=== PATIENT | female | born 1935 | race African-American/Black ===

== ENCOUNTER → 2016-08-17 | Outpatient (CLI) | payer MEDICARE, OTHER ==
--- NOTE | 2016-08-17 16:00 | RADIOLOGY REPORT (SQ) ---
EXAM DESCRIPTION: CT CHEST WITH; CT ABD/PELVIS WITH IV ONLY COMPLETED DATE/TIME: 08/17/2016 3:04 pm REASON FOR STUDY: ABN WEIGHT LOSS/COUGH R63.4 ABNORMAL WEIGHT LOSS R05 COUGH COMPARISON: None. CONTRAST TYPE AND DOSE: 57mL Omnipaque 300- low osmolar. RENAL FUNCTION: Creatinine 1.5 TECHNIQUE: CT scan of the chest performed using helical scanning technique with dynamic intravenous contrast injection. Images reviewed with lung, soft tissue and bone windows. Reconstructed coronal a nd sagittal MPR images reviewed. All images stored on PACS. CT scan of the abdomen and pelvis performed with intravenous and with oral contrastusing helical scan jai technique with dynamic intravenous contrast injection. Images reviewed with lung, soft tissue a nd bone windows. Reconstructed coronal and sagittal MPR images reviewed. Delayed images for evaluat ion of the urinary system also acquired and evaluated. All images stored on PACS. All CT scanners at this facility use dose modulation, iterative reconstruction, and/or weight based d osing when appropriate to reduce radiation dose to as low as reasonably achievable (ALARA). [facility]: Dose Right [facility]: CareDose [facility]: Dose Right [facility]: Teradose 4D [facility]: [employer] RADIATION DOSE: 4.42; 9.52 mGy. LIMITATIONS: No oral contrast FINDINGS: CHEST: LUNGS AND PLEURA: No opacities, nodules, masses. No pneumothorax. No effusions. HILAR AND MEDIASTINAL STRUCTURES: No identified masses or abnormal nodes. HEART AND VASCULAR STRUCTURES: No aneurysm or dissection. No central pulmonary emboli. No pericardi al effusion. Mild coronary artery calcification. HARDWARE: None. THYROID AND OTHER SOFT TISSUES: No masses. No adenopathy. BONES: No significant finding. OTHER: No other significant finding. ABDOMEN AND PELVIS: LIVER: Normal size. No masses or dilated ducts. 5 to 6 mm simple cyst right lobe liver image 17 SPLEEN: Normal size. No focal lesions. PANCREAS: No masses. No significant calcifications. No adjacent inflammation or peripancreatic fluid collections. Pancreatic duct not dilated. GALLBLADDER: No identified stones by CT criteria. No inflammatory changes to suggest cholecystitis. ADRENAL GLANDS: No significant masses or asymmetry. RIGHT KIDNEY AND URETER: No solid masses. No significant calcification. No hydronephrosis or hydroure ter. LEFT KIDNEY AND URETER: No solid masses. No significant calcification. No hydronephrosis or hydrouret er. Left upper pole 1.6 cm, 1.3 cm and 1.1 cm cortical cysts. AORTA AND VESSELS: No aneurysm. No dissection. Renal arteries, SMA, celiac without stenosis. RETROPERITONEUM: No retroperitoneal adenopathy, hemorrhage or masses. BOWEL AND PERITONEAL CAVITY: No masses or inflammatory changes. No free fluid or peritoneal masses. Large amount of stool throughout the colon. APPENDIX: Normal. ABDOMINAL WALL: No masses. No hernias. BONES: No significant or acute findings. PELVIS: No other significant finding. Normal size uterus and ovaries. No free pelvic fluid. Delaye d images of the urinary bladder unremarkable. IMPRESSION: No CT findings to explain history of weight loss TECHNICAL DOCUMENTATION: JOB ID: [id number] Quality ID # [id number]: Final reports with documentation of one or more dose reduction techniques (e.g., Au tomated exposure control, adjustment of the mA and/or kV according to patient size, use of iterative reconstruction technique) 2010 [employer]- All Rights Reserved
== END ==
LOC: RAD 13:33
PROVIDERS: ATTEND Internal Medicine
DX: R63.4 Abnormal weight loss (principal); R05 Cough; K76.89 Other specified diseases of liver
CPT/HCPCS: 71260; 74177; 82565

== ENCOUNTER → 2016-11-08 | Outpatient (CLI) | payer MEDICARE, OTHER ==
--- NOTE | 2016-11-10 02:11 | WOMENS IMAGING REPORT ---
EXAM DESCRIPTION: 3D SCREENING MAMMO BILAT COMPLETED DATE/TIME: 11/08/2016 8:37 am REASON FOR STUDY: ROUTINE SCREENING COMPARISON: Multiple since 2012 TECHNIQUE: Standard craniocaudal and mediolateral oblique views of each breast recorded using digita l acquisition and breast tomosynthesis. LIMITATIONS: None. FINDINGS: No masses, calcifications or architectural distortion. No areas of suspicion. Read with the assistance of CAD. .[facility] - R2 [employer] Version 1.3 .[facility] - R2 Cenova Version 1.3 .[facility] - R2 Cenova Version 2.4 .[facility] [place] [facility] - R2 Cenova Version 2.4 .[facility] - R2 [employer] Version 9.2 IMPRESSION: NORMAL MAMMOGRAM. BIRADS 1. BREAST DENSITY: d. The breasts are extremely dense, which lowers the sensitivity of mammography. BIRAD: 1 NEGATIVE RECOMMENDATION: ROUTINE SCREENING Please continue bilateral screening tomosynthesis in October 2017 COMMENT: The patient has been notified of the results by letter per SA requirements. Additional no tification policies are in place for contacting patient with suspicious or incomplete findings. Quality ID #[id number]: The [employer] recommends an annual screening mammogram for women aged 40 years or over. This facility utilizes a reminder system to ensure that all patients receive reminder letters, and/or direct phone calls for appointments. This includes reminders for routine scr eening mammograms, diagnostic mammograms, or other Breast Imaging Interventions when appropriate. Th is patient will be placed in the appropriate reminder system. The [employer] (ACR) has developed recommendations for screening MRI of the breast s in certain patient populations, to be used in conjunction with mammography. Breast MRI surveillanc e may be appropriate for women with more than 20% lifetime risk of developing breast cancer as deter mined by genetic testing, significant family history of the disease, or history of mantle radiation f or Hodgkins Disease. ACR Practice Guidelines 2008. DBT Technology DBT is a type of tomographic mammography. With conventional mammography, overlapping breast tissue ma y make lesions difficult to detect, even with good compression. DBT uses an x-ray tube that rotates a round the breast, taking images at different angles. These images are then combined to create thin sl ices of the breast that the radiologist can view as a 3D reconstruction. The [employer] unit can perform full-field digital mammograms (2D imaging); or DBT (3D imaging); or both, in a combination mode that quickly performs both the mammogram and the tomosynthesis scan while the breast is still compressed. PQRS 6045F: Fluoroscopic imaging is not utilized for breast tomosynthesis. TECHNICAL DOCUMENTATION: FINDING NUMBER: (1) ASSESSMENT: (1) JOB ID: [id number] [email or web address]- All Rights Reserved
== END ==
LOC: WI 08:07
PROVIDERS: ATTEND Internal Medicine
DX: Z12.31 Encounter for screening mammogram for malignant neoplasm of breast (principal)
CPT/HCPCS: 77063; G0202; 77067

== ENCOUNTER 2017-03-03 11:13 | Emergency (ER) | payer MEDICARE, OTHER ==
[2017-03-03] MEDS ORDERED: NORMAL SALINE 1000 ML 1,000 ML IV ONE (11:28)
--- NOTE | 2017-03-03 11:32 | ER Document Report ---
ED Medical Screen (RME) - General Chief Complaint: Near Syncope Stated Complaint: WEAKNESS Time Seen by Provider: 03/03/17 11:28 Mode of Arrival: Ambulatory Information source: Patient, Relative TRAVEL OUTSIDE OF THE [place] IN LAST 30 DAYS: No - HPI Patient complains to provider of: near syncope Onset: This morning - pt. states she was on the commonde when she got weak and light-headed and felt like she may pass out. Feels better now - Related Data Allergies/Adverse Reactions: No Known Allergies Allergy (Unverified 05/03/13 14:41) Past Medical History - Past Medical History Cardiac Medical History: Reports: Hx Hypertension - Immunizations Hx Diphtheria, Pertussis, Tetanus Vaccination: Yes Physical Exam - Vital signs Vitals: Temp Pulse Resp BP Pulse Ox 97.8 F 65 20 141/63 H 100 03/03/17 11:22 03/03/17 11:22 03/03/17 11:22 03/03/17 11:22 03/03/17 11:22 Course - Vital Signs Vital signs: Temp Pulse Resp BP Pulse Ox 97.8 F 65 20 141/63 H 100 03/03/17 11:22 03/03/17 11:22 03/03/17 11:22 03/03/17 11:22 03/03/17 11:22
[2017-03-03 12:06] LABS: ABSOLUTE BASOPHILS # (AUTO) 0.1 10^3/uL (0.0-0.2); ABSOLUTE EOSINOPHILS # (AUTO) 0.1 10^3/uL (0.0-0.6); ABSOLUTE LYMPHOCYTES (AUTO) 0.8 10^3/uL (0.5-4.7); ABSOLUTE MONOCYTES (AUTO) 0.9 10^3/uL (0.1-1.4); ABSOLUTE NEUT (AUTO) 3.6 10^3/uL (1.7-8.2); BASOPHILS % (AUTO) 1.2 % (0-2); EOSINOPHILS % (AUTO) 2.6 % (0-6); HEMATOCRIT 36.9 % (36.0-47.0); HEMOGLOBIN 12.5 g/dL (12.0-15.5); HGB HCT DIFFERENCE 0.6; LYMPHOCYTES % (AUTO) 14.9 % (13-45); MEAN CORPUSCULAR HEMOGLOBIN 31.5 pg (27.0-33.4); MEAN CORPUSCULAR VOLUME 93 fl (80-97); MONOCYTES % (AUTO) 15.9 % (3-13); RED BLOOD COUNT 3.97 10^6/uL (3.72-5.28); RED CELL DISTRIBUTION WIDTH 13.4 % (11.5-14.0); SEGMENTED NEUTROPHILS % (AUTO) 65.4 % (42-78); WHITE BLOOD COUNT 5.4 10^3/uL (4.0-10.5)
--- NOTE | 2017-03-03 12:11 | ER Document Report ---
ED Dizziness/Weakness - General Chief Complaint: Near Syncope Stated Complaint: WEAKNESS Time Seen by Provider: 03/03/17 11:28 Mode of Arrival: Ambulatory Notes: 81 years old female with a history of high blood pressure got up this morning took her blood pressure medicine went down and had breakfast and came back to her room and was sitting suddenly felt dizzy and lightheaded lasting for about a minute or 2 and then she started drinking some water. A few minutes later she felt much better and the dizziness went away. Currently has no lightheadedness, denies any spinning sensation, denies any ringing sensation, denies any headache, denies any fever chills or other constitutional symptoms. Denies any focal weaknesses TRAVEL OUTSIDE OF THE [place] IN LAST 30 DAYS: No - Related Data Allergies/Adverse Reactions: No Known Allergies Allergy (Unverified 05/03/13 14:41) Home Medications: Current Home Medications Amlodipine Besylate/Benazepril [Amlodipine-Benazepril 10-40 mg] 1 tab PO DAILY 03/03/17 [History] Bisoprolol/Hydrochlorothiazide [Bisoprolol-Hctz 10-6.25 mg Tab] 1 tab PO DAILY 03/03/17 [History] Hydralazine HCl 2 tab PO QAM 03/03/17 [History] Past Medical History - General Information source: Patient, Relative - Social History Smoking Status: Former Smoker Chew tobacco use (# tins/day): No Frequency of alcohol use: None Drug Abuse: None Family History: Reviewed & Not Pertinent Patient has suicidal ideation: No Patient has homicidal ideation: No - Past Medical History Cardiac Medical History: Reports: Hx Hypertension Renal/ Medical History: Denies: Hx Peritoneal Dialysis - Immunizations Hx Diphtheria, Pertussis, Tetanus Vaccination: Yes Hx Pneumococcal Vaccination: 12/24/12 Review of Systems - Review of Systems Notes: REVIEW OF SYSTEMS: CONSTITUTIONAL : Denies fever, chills, or sweats. Denies recent illness. EENT: Denies eye, ear, throat, or mouth pain or symptoms. Denies nasal or sinus congestion or discharge. Denies throat, tongue, or mouth swelling or difficulty swallowing. CARDIOVASCULAR: Denies chest pain. Denies palpitations or racing or irregular heart beat. Denies ankle edema. RESPIRATORY: Denies cough, cold, or chest congestion. Denies shortness of breath, difficulty breathing, or wheezing. GASTROINTESTINAL: Denies abdominal pain or distention. Denies nausea, vomiting , or diarrhea. Denies blood in vomitus, stools, or per rectum. Denies black, tarry stools. Denies constipation. GENITOURINARY: Denies difficulty urinating, painful urination, burning, frequency, blood in urine, or discharge. FEMALE GENITOURINARY: Denies vaginal bleeding, heavy or abnormal periods, irregular periods. Denies vaginal discharge or odor. MUSCULOSKELETAL: Denies back or neck pain or stiffness. Denies joint pain or swelling. SKIN: Denies rash, lesions or sores. HEMATOLOGIC : Denies easy bruising or bleeding. LYMPHATIC: Denies swollen, enlarged glands. NEUROLOGICAL: Denies confusion or altered mental status. Denies passing out or loss of consciousness. Denies dizziness or lightheadedness. Denies headache. Denies weakness or paralysis or loss of use of either side. Denies problems with gait or speech. Denies sensory loss, numbness, or tingling. Denies seizures. PSYCHIATRIC: Denies anxiety or stress. Denies depression, suicidal ideation, or homicidal ideation. ALL OTHER SYSTEMS REVIEWED AND NEGATIVE. PHYSICAL EXAMINATION: GENERAL: Well-appearing, not seems to be in any acute distress very pleasant female HEAD: Atraumatic, normocephalic. EYES: Pupils equal round and reactive to light, extraocular movements intact, conjunctiva are normal. ENT: Nares patent, oropharynx clear without exudates. Moist mucous membranes. NECK: Normal range of motion, supple without lymphadenopathy LUNGS: Breath sounds clear to auscultation bilaterally and equal. No wheezes rales or rhonchi. HEART: Regular rate and rhythm without murmurs ABDOMEN: Soft, nontender, nondistended abdomen. No guarding, no rebound. No masses appreciated. Female : deferred Musculoskeletal: Normal range of motion, no pitting or edema. No cyanosis. NEUROLOGICAL: Cranial nerves grossly intact. Normal speech, normal gait. Normal sensory, motor exams PSYCH: Normal mood, normal affect. SKIN: Warm, Dry, normal turgor, no rashes or lesions noted. Dictation was performed using [employer] voice recognition software Physical Exam - Vital signs Vitals: Temp Pulse Resp BP Pulse Ox 97.8 F 65 20 141/63 H 100 03/03/17 11:22 03/03/17 11:22 03/03/17 11:22 03/03/17 11:22 03/03/17 11:22 Course - Re-evaluation Re-evalutation: 03/03/17 13:16 Patient feeling comfortable - Vital Signs Vital signs: Temp Pulse Resp BP Pulse Ox 97.8 F 65 20 141/63 H 100 03/03/17 11:22 03/03/17 11:22 03/03/17 11:22 03/03/17 11:22 03/03/17 11:22 - Laboratory Result Diagrams: 03/03/17 11:45 03/03/17 11:45 Laboratory results interpreted by me: 03/03/17 03/03/17 11:45 11:45 Monocytes % 15.9 H BUN 26 H Est GFR ( Amer) 53 L Est GFR (Non-Af Amer) 43 L Total Protein 8.7 H - Diagnostic Test Radiology results interpreted by me: 03/03/17 13:16 Chest x-ray report reviewed it appears negative - EKG Interpretation by Me EKG shows normal: Sinus rhythm - At the rate of 53 bpm normal axis no acute ST elevation ST depression T-wave inversion noted. Discharge - Discharge Clinical Impression: Positional lightheadedness Hypertension Qualifiers: Hypertension type: essential hypertension Qualified Code(s): I10 - Essential ( primary) hypertension Condition: Good Disposition: HOME, SELF-CARE Instructions: Orthostatic Hypotension ([facility])
[2017-03-03 12:16] LABS: ALANINE AMINOTRANSFERASE 24 U/L (9-52); ALBUMIN 4.6 g/dL (3.5-5.0); ALKALINE PHOSPHATASE 67 U/L (38-126); ANION GAP 10 (5-19); ASPARTATE AMINO TRANSFERASE 21 U/L (14-36); BILIRUBIN,DIRECT 0.4 mg/dL (0.0-0.4); BILIRUBIN,TOTAL 0.5 mg/dL (0.2-1.3); BLOOD UREA NITROGEN 26 mg/dL (7-20); CALCIUM 9.5 mg/dL (8.4-10.2); CARBON DIOXIDE 29 mmol/L (22-30); CHLORIDE 103 mmol/L (98-107); CREATINE KINASE 63 U/L (30-135); CREATININE RESULT 1.19 mg/dL (0.52-1.25); GLUCOSE 88 mg/dL (75-110); SODIUM 141.7 mmol/L (137-145); TOTAL PROTEIN 8.7 g/dL (6.3-8.2)
[2017-03-03 12:25] LABS: CREATINE KINASE MB 0.71 ng/mL (<4.55)
[2017-03-03 12:29] LABS: TROPONIN I < 0.012 ng/mL
--- NOTE | 2017-03-03 12:55 | RADIOLOGY REPORT (SQ) ---
EXAM DESCRIPTION: CHEST PA/LAT COMPLETED DATE/TIME: 03/03/2017 12:48 pm REASON FOR STUDY: weakness COMPARISON: None. EXAM PARAMETERS: NUMBER OF VIEWS: two views TECHNIQUE: Digital Frontal and Lateral radiographic views of the chest acquired. RADIATION DOSE: NA LIMITATIONS: none FINDINGS: LUNGS AND PLEURA: No opacities, masses or pneumothorax. No pleural effusion. MEDIASTINUM AND HILAR STRUCTURES: No masses or contour abnormalities. HEART AND VASCULAR STRUCTURES: Heart normal size. No evidence for failure. BONES: No acute findings. HARDWARE: None in the chest. OTHER: No other significant finding. IMPRESSION: NO SIGNIFICANT RADIOGRAPHIC FINDING IN THE CHEST. TECHNICAL DOCUMENTATION: JOB ID: [id number] [employer]- All Rights Reserved
[2017-03-03 13:38] VITALS: BP 138/68
--- NOTE | 2017-03-03 23:11 | EKG REPORT ---
SEVERITY:- ABNORMAL ECG - SINUS RHYTHM ATRIAL PREMATURE COMPLEX FIRST DEGREE AV BLOCK LEFT VENTRICULAR HYPERTROPHY : Confirmed by: Rick Resendez 03-Mar-2017 23:11:12
== END 2017-03-03 13:40 | disposition home or self-care (01) ==
LOC: ER 11:13
DX: R42 Dizziness and giddiness (principal); I10 Essential (primary) hypertension; R53.1 Weakness; Z79.899 Other long term (current) drug therapy; Z87.891 Personal history of nicotine dependence
CPT/HCPCS: 93005; 99285; 96360; 36415; 82553; 82550; 85025; 80053; 84484; 71020; 93010; J7030

== ENCOUNTER 2017-03-28 02:08 | Emergency (ER) | payer MEDICARE, OTHER ==
[2017-03-28] MEDS ORDERED: NORMAL SALINE 500 ML IV ONE ×2 (03:13→05:34)
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
[2017-03-28 03:58] LABS: ALANINE AMINOTRANSFERASE 28 U/L (9-52); ALBUMIN 3.8 g/dL (3.5-5.0); ALKALINE PHOSPHATASE 63 U/L (38-126); ANION GAP 11 (5-19); ASPARTATE AMINO TRANSFERASE 37 U/L (14-36); BILIRUBIN,DIRECT 0.2 mg/dL (0.0-0.4); BILIRUBIN,TOTAL 0.8 mg/dL (0.2-1.3); BLOOD UREA NITROGEN 23 mg/dL (7-20); CALCIUM 9.3 mg/dL (8.4-10.2); CARBON DIOXIDE 30 mmol/L (22-30); CHLORIDE 95 mmol/L (98-107); GLUCOSE 114 mg/dL (75-110); POTASSIUM 3.7 mmol/L (3.6-5.0); SODIUM 136.1 mmol/L (137-145); TOTAL PROTEIN 7.2 g/dL (6.3-8.2)
[2017-03-28 04:23] LABS: HEMATOCRIT 36.5 % (36.0-47.0); HEMOGLOBIN 12.5 g/dL (12.0-15.5); MEAN CORPUSCULAR HEMOGLOBIN 30.7 pg (27.0-33.4); MEAN CORPUSCULAR HGB CONC 34.2 g/dL (32.0-36.0); MEAN CORPUSCULAR VOLUME 90 fl (80-97); PLATELET COUNT 205 10^3/uL (150-450); RED BLOOD COUNT 4.07 10^6/uL (3.72-5.28); RED CELL DISTRIBUTION WIDTH 13.6 % (11.5-14.0)
--- NOTE | 2017-03-28 04:32 | RADIOLOGY REPORT (SQ) ---
EXAM DESCRIPTION: CHEST SINGLE VIEW CLINICAL HISTORY: 81 years, Female, syncope COMPARISON: 03/03/2017. FINDINGS: Adequate lung volume, clear parenchyma, normal cardiac silhouette, atherosclerosis, and mild osteoarthritis. IMPRESSION: No acute cardiopulmonary findings. 2011 [employer]- All Rights Reserved
[2017-03-28 04:36] LABS: ABSOLUTE LYMPHOCYTES# (MANUAL) 2.3 10^3/uL (0.5-4.7); ABSOLUTE MONOCYTES # (MANUAL) 0.4 10^3/uL (0.1-1.4); ABSOLUTE NEUTROPHILS# (MANUAL) 3.2 10^3/uL (1.7-8.2); ACANTHOCYTES SLIGHT; BAND NEUTROPHILS % (MANUAL) 5 % (3-5); BASOPHILS % (MANUAL) 0 % (0-2); EOSINOPHILS % (MANUAL) 0 % (0-6); LYMPHOCYTES % (MANUAL) 39 % (13-45); MONOCYTES % (MANUAL) 7 % (3-13); PLATELET COMMENT ADEQUATE; PLATELET LARGE PRESENT; POIKILOCYTOSIS SLIGHT; SEGMENTED NEUTROPHILS % (MAN) 49 % (42-78); TOTAL CELLS COUNTED 100
--- NOTE | 2017-03-28 04:41 | RADIOLOGY REPORT (SQ) ---
EXAM DESCRIPTION: CT HEAD WITHOUT CLINICAL HISTORY: 81 years Female, syncope COMPARISON: None. TECHNIQUE: No contrast. This exam was performed according to our departmental dose-optimization program, which includes automated exposure control, adjustment of the mA and/or kV according to patient size and/or use of iterative reconstruction technique. FINDINGS: No acute intracranial findings. Mild cerebral volume loss, atherosclerosis, moderate left maxillary mucosal occlusion with high attenuation components and 0.5 cm calcification, chronic nondisplaced oblique defect of the lateral left orbital wall and chronic mild deformity of the lateral and medial left maxillary wall. IMPRESSION: No acute findings. 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
[2017-03-28 06:33] LABS: AMORPHOUS SEDIMENT,URINE TRACE /HPF; APPEARANCE,URINE CLEAR; BILIRUBIN,URINE NEGATIVE (NEGATIVE); COLOR,URINE YELLOW; GLUCOSE, URINE NEGATIVE (NEGATIVE); KETONES,URINE NEGATIVE (NEGATIVE); LEUKOCYTE ESTERASE,URINE TRACE (NEGATIVE); NITRITE,URINE NEGATIVE (NEGATIVE); PROTEIN,URINE NEGATIVE (NEGATIVE); URINE SPECIFIC GRAVITY 1.009
[2017-03-28 07:00] VITALS: BP 119/68
--- NOTE | 2017-03-28 10:33 | EKG REPORT ---
SEVERITY:- ABNORMAL ECG - SINUS RHYTHM FIRST DEGREE AV BLOCK LEFT AXIS DEVIATION LEFT VENTRICULAR HYPERTROPHY : Confirmed by: Rick Resendez 28-Mar-2017 10:33:01
== END 2017-03-28 07:00 | disposition home or self-care (01) ==
LOC: ER 02:08
DX: R55 Syncope and collapse (principal); R42 Dizziness and giddiness
CPT/HCPCS: 93005; 99285; 36415; 85025; 80053; 81001; 84484; 71045; 70450; 93010; J7040

== ENCOUNTER → 2017-08-01 | Outpatient (CLI) | payer MEDICARE, OTHER ==
--- NOTE | 2017-08-01 10:43 | RADIOLOGY REPORT (SQ) ---
EXAM DESCRIPTION: U/S RETROPERITON (RENAL/AORTA) COMPLETED DATE/TIME: 08/01/2017 9:41 am REASON FOR STUDY: ABN KIDNEY FUNCTION STUDIES (R94.4) R94.4 ABNORMAL RESULTS OF KIDNEY FUNCTION ANGEL DIES COMPARISON: None. TECHNIQUE: Dynamic and static grayscale images acquired of the kidneys and bladder and recorded on P ACS. Additional selected color Doppler and spectral images recorded. LIMITATIONS: None. FINDINGS: RIGHT KIDNEY: Normal size. Normal echogenicity. No solid or suspicious masses. No h ydronephrosis. No calcifications. LEFT KIDNEY: Normal size. 2 cm cyst upper pole. No solid or suspicious masses. No hydronephros is. No calcifications. BLADDER: No masses. OTHER FINDINGS: No other significant finding. IMPRESSION: No hydronephrosis. TECHNICAL DOCUMENTATION: JOB ID: [id number] [employer]- All Rights Reserved Reading location - IP/workstation name: [email or web address] CUTTING [email or web address]
== END ==
LOC: RAD 08:58
PROVIDERS: ATTEND Internal Medicine
DX: R94.4 Abnormal results of kidney function studies (principal)
CPT/HCPCS: 76770

== ENCOUNTER → 2019-10-07 | Outpatient (CLI) | payer MEDICARE, OTHER ==
--- NOTE | 2019-10-07 15:44 | RADIOLOGY REPORT (SQ) ---
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 TECHNIQUE: Multiplanar imaging includes non-contrasted T1, T2, FLAIR, and diffusion with ADC map seq uences. Images stored on PACS. LIMITATIONS: Motion. FINDINGS: ANATOMY: No anomalies. Normal vascular flow voids. Pituitary fossa normal. CSF SPACES: Atrophy induced prominence of ventricles and CSF spaces. CEREBRUM: High signal intensity lesions scattered throughout the white matter on FLAIR imaging with d istribution suggesting micro-vascular ischemic changes. No evidence of hemorrhage, mass, or extraaxi al fluid collection. POSTERIOR FOSSA: No signal alteration. No hemorrhage. No edema, masses or mass effect. Internal gardenia tory canals, cerebello-pontine angles, mastoids normal. DIFFUSION IMAGING: Negative for acute or sub-acute infarction. ORBITS: No masses. Globes normal. PARANASAL SINUSES: Mucosal thickening left maxillary sinus. OTHER: No other significant finding. IMPRESSION: No acute findings. EVIDENCE OF ACUTE STROKE: NO. TECHNICAL DOCUMENTATION: JOB ID: [id number] 2010 [employer]- All Rights Reserved Reading location - IP/workstation name: [email or web address]
== END ==
LOC: RAD 14:37
PROVIDERS: ATTEND Internal Medicine
DX: I69.911 Memory deficit following unspecified cerebrovascular disease (principal)
CPT/HCPCS: 70551

== ENCOUNTER → 2020-01-15 | Outpatient (CLI) | payer MEDICARE, OTHER ==
--- NOTE | 2020-01-15 14:47 | RADIOLOGY REPORT (SQ) ---
EXAM DESCRIPTION: VENOUS BILATERAL LOWER IMAGES COMPLETED DATE/TIME: 01/15/2020 2:33 pm REASON FOR STUDY: SWELLING R22.43 LOCALIZED SWELLING, MASS AND LUMP, LOWER LIMB, BILATE COMPARISON: None. TECHNIQUE: Dynamic and static ochoa scale and color images acquired of both lower extremity venous sy stems. Selected spectral images acquired with additional compression and augmentation maneuvers. Imag es stored on PACS. LIMITATIONS: None. FINDINGS: RIGHT LEG COMMON FEMORAL AND FEMORAL: Normal phasicity, compression and augmentation. No visualized echogenic m aterial on ochoa scale. No defects on color images. POPLITEAL: Normal compression and augmentation. No visualized echogenic material on ochoa scale. No de fects on color images. CALF VESSELS: Normal compression and augmentation. No visualized echogenic material on ochoa scale. No defects on color image. GSV AND SSV: Normal compression. No visualized echogenic material on ochoa scale. No defects on color images. ANY DEEP VENOUS INSUFFICIENCY: No. ANY EVIDENCE OF POPLITEAL CYST: No. OTHER: No other significant finding. LEFT LEG COMMON FEMORAL AND FEMORAL: Normal phasicity, compression and augmentation. No visualized echogenic m aterial on ochoa scale. No defects on color images. POPLITEAL: Normal compression and augmentation. No visualized echogenic material on ochoa scale. No de fects on color images. CALF VESSELS: Normal compression and augmentation. No visualized echogenic material on ochoa scale. No defects on color images. GSV AND SSV: Normal compression. No visualized echogenic material on ochoa scale. No defects on color images. ANY DEEP VENOUS INSUFFICIENCY: No. ANY EVIDENCE POPLITEAL CYST: No. OTHER: No other significant finding. IMPRESSION: NO EVIDENCE DVT OR SVT IN EITHER LEG. TECHNICAL DOCUMENTATION: JOB ID: [id number] 2010 [employer]- All Rights Reserved Reading location - IP/workstation name: [email or web address]
== END ==
LOC: SP 13:28
PROVIDERS: ATTEND Internal Medicine
DX: R22.43 Localized swelling, mass and lump, lower limb, bilateral (principal)
CPT/HCPCS: 93970

== ENCOUNTER 2020-01-19 11:40 | Inpatient (IN) | payer MEDICARE, OTHER ==
[2020-01-19 12:49] LABS: ABSOLUTE EOSINOPHILS # (AUTO) 0.1 10^3/uL (0.0-0.6); ABSOLUTE LYMPHOCYTES (AUTO) 1.6 10^3/uL (0.5-4.7); ABSOLUTE MONOCYTES (AUTO) 0.6 10^3/uL (0.1-1.4); ABSOLUTE NEUT (AUTO) 1.3 10^3/uL (1.7-8.2); BASOPHILS % (AUTO) 1.2 % (0-2); EOSINOPHILS % (AUTO) 1.8 % (0-6); HEMATOCRIT 31.9 % (36.0-47.0); HEMOGLOBIN 11.3 g/dL (12.0-15.5); LYMPHOCYTES % (AUTO) 45.3 % (13-45); MEAN CORPUSCULAR HEMOGLOBIN 31.8 pg (27.0-33.4); MEAN CORPUSCULAR HGB CONC 35.4 g/dL (32.0-36.0); MEAN CORPUSCULAR VOLUME 90 fl (80-97); MONOCYTES % (AUTO) 15.8 % (3-13); PLATELET COUNT 154 10^3/uL (150-450); RED BLOOD COUNT 3.55 10^6/uL (3.72-5.28); RED CELL DISTRIBUTION WIDTH 14.1 % (11.5-14.0); SEGMENTED NEUTROPHILS % (AUTO) 35.9 % (42-78); TOTAL CELLS COUNTED % (AUTO) 100 %; WHITE BLOOD COUNT 3.5 10^3/uL (4.0-10.5)
[2020-01-19 13:08] LABS: ALKALINE PHOSPHATASE 76 U/L (38-126); ANION GAP 10 (5-19); ASPARTATE AMINO TRANSFERASE 30 U/L (14-36); BILIRUBIN,DIRECT 0.4 mg/dL (0.0-0.4); BILIRUBIN,TOTAL 0.9 mg/dL (0.2-1.3); BLOOD UREA NITROGEN 21 mg/dL (7-20); CALCIUM 9.3 mg/dL (8.4-10.2); CARBON DIOXIDE 30 mmol/L (22-30); CHLORIDE 99 mmol/L (98-107); GLUCOSE 92 mg/dL (75-110); POTASSIUM 3.2 mmol/L (3.6-5.0); TOTAL PROTEIN 7.4 g/dL (6.3-8.2)
[2020-01-19 13:35] LABS: CREATINE KINASE MB 1.08 ng/mL (<4.55)
--- NOTE | 2020-01-19 13:38 | RADIOLOGY REPORT (SQ) ---
EXAM DESCRIPTION: CHEST 2 VIEWS IMAGES COMPLETED DATE/TIME: 01/19/2020 1:28 pm REASON FOR STUDY: CHF COMPARISON: 03/03/2017 EXAM PARAMETERS: NUMBER OF VIEWS: two views TECHNIQUE: Digital Frontal and Lateral radiographic views of the chest acquired. RADIATION DOSE: NA LIMITATIONS: Artifact overlying the lower chest most likely secondary to clothing. FINDINGS: LUNGS AND PLEURA: No opacities, masses or pneumothorax. No pleural effusion. MEDIASTINUM AND HILAR STRUCTURES: No masses or contour abnormalities. HEART AND VASCULAR STRUCTURES: Heart normal size. No evidence for failure. BONES: No acute findings. HARDWARE: None in the chest. OTHER: No other significant finding. IMPRESSION: NO ACUTE RADIOGRAPHIC FINDING IN THE CHEST. TECHNICAL DOCUMENTATION: JOB ID: [id number] 2010 [employer]- All Rights Reserved Reading location - IP/workstation name: [email or web address]
[2020-01-19 13:41] LABS: TROPONIN I 0.069 ng/mL
--- NOTE | 2020-01-19 17:28 | EKG REPORT ---
SEVERITY:- ABNORMAL ECG - SINUS RHYTHM FIRST DEGREE AV BLOCK LEFT AXIS DEVIATION LEFT VENTRICULAR HYPERTROPHY : Confirmed by: Thang Joyce MD 19-Jan-2020 17:27:47
[2020-01-19] MEDS ORDERED: NITROGLYCERIN/D5W 50 MG/250 ML RTUINJ IV PRN (17:38)
--- NOTE | 2020-01-19 18:18 | PDOC H&P ---
History of Present Illness Admission Date/PCP: 01/19/20 11:40 MICHAELA HUFF MD History of Present Illness: EVIN ALEXIS is a 84 year old female She came to the office today for follow-up evaluation, I saw her in the office last week when she came for the evaluation of bilateral leg swelling, a stat venous Doppler was done, it was negative for deep vein thrombosis, the blood work that was done outpatient demonstrated elevated B type natruretic peptide that suggest CHF. The kidney function was normal ,liver function was normal, patient denied any shortness of breath, PND, orthopnea, she was admitted directly from the office to the hospital. She also was found to have severely elevated blood pressure in the emergency hypertensive range. The transthoracic echocardiogram that was done demonstrated Normal size left ventricle, the estimated ejection fraction of left ventricle is 50%. The Doppler measurements suggest impaired left ventricular relaxation which is associated with grade 1 diastolic dysfunction. There is mild global hypokinesis of the left ventricle there is no thrombus the right ventricle is mildly dilated, the systolic function of] is normal the right atrium is borderline dilated, there is moderate to severe pulmonary pretension by echocardiogram. CT angiogram of the chest was done demonstrated aneurysmal dilation of the ascending thoracic aorta measuring 4 x 3.8 cm.There is no pulmonary emboli. The pulmonary arteries are enlarged Past Medical History Cardiac Medical History: Reports: Hypertension Pulmonary Medical History: Reports: Other - Pulmonary hypertension Psychiatric Medical History: Reports: Dementia Social History Smoking Status: Former Smoker Electronic Cigarette use?: No Number of Years Smokin Last Time Smoked: 1997 Frequency of Alcohol Use: None Hx Recreational Drug Use: No Drugs: None Hx Prescription Drug Abuse: No Family History Family History: Reviewed & Not Pertinent Parental Family History Reviewed: Yes Children Family History Reviewed: Yes Sibling(s) Family History Reviewed.: Yes Medication/Allergy Home Medications: Aspirin [Ecotrin 81 mg EC Tablet] 81 mg PO DAILY 01/19/20 Donepezil HCl [Aricept 5 mg Tablet] 5 mg PO DAILY 01/19/20 Eszopiclone 3 mg PO QHS 01/19/20 Furosemide [Lasix 40 mg Tablet] 40 mg PO QAM 01/19/20 Memantine HCl 10 mg PO BID 01/19/20 Metoprolol Succinate [Toprol Xl] 100 mg PO DAILY 01/19/20 Potassium Chloride [Klor-Con M20] 20 meq PO DAILY 01/19/20 Allergies/Adverse Reactions: No Known Allergies Allergy (Unverified 05/03/13 14:41) Review of Systems Constitutional: ABSENT: chills, fever(s), headache(s), weight gain, weight loss Eyes: ABSENT: visual disturbances Ears: ABSENT: hearing changes Cardiovascular: PRESENT: edema. ABSENT: chest pain, dyspnea on exertion, orthropnea, palpitations Respiratory: ABSENT: cough, hemoptysis Gastrointestinal: ABSENT: abdominal pain, constipation, diarrhea, hematemesis, hematochezia, nausea, vomiting Genitourinary: ABSENT: dysuria, hematuria Musculoskeletal: ABSENT: joint swelling Integumentary: ABSENT: rash, wounds Neurological: ABSENT: abnormal gait, abnormal speech, confusion, dizziness, focal weakness, syncope Psychiatric: ABSENT: anxiety, depression, homidical ideation, suicidal ideation Endocrine: ABSENT: cold intolerance, heat intolerance, menstrual abnormalities, polydipsia, polyuria Hematologic/Lymphatic: ABSENT: easy bleeding, easy bruising, lymphadenopathy Physical Exam Vital Signs: Temp Pulse Resp BP Pulse Ox 98.3 F 58 L 16 206/86 H 100 01/19/20 16:00 01/19/20 16:00 01/19/20 16:00 01/19/20 16:00 01/19/20 16:00 Intake & Output 01/18/20 01/19/20 01/20/20 06:59 06:59 06:59 Weight 53 kg General appearance: PRESENT: thin Head exam: PRESENT: normocephalic Eye exam: PRESENT: PERRLA Mouth exam: PRESENT: moist Neck exam: PRESENT: full ROM Respiratory exam: PRESENT: clear to auscultation siena Cardiovascular exam: PRESENT: RRR, +S1, +S2 GI/Abdominal exam: PRESENT: normal bowel sounds, soft Rectal exam: PRESENT: deferred Extremities exam: PRESENT: pedal edema Neurological exam: PRESENT: alert, CN II-XII grossly intact Psychiatric exam: PRESENT: appropriate affect, normal mood Skin exam: PRESENT: dry, intact, warm Results Laboratory Results: 01/19/20 12:30 01/19/20 12:30 01/19/20 01/19/20 01/19/20 12:30 12:30 12:30 WBC 3.5 L RBC 3.55 L Hgb 11.3 L Hct 31.9 L MCV 90 MCH 31.8 MCHC 35.4 RDW 14.1 H Plt Count 154 Seg Neutrophils % 35.9 L Sodium 138.8 Potassium 3.2 L Chloride 99 Carbon Dioxide 30 Anion Gap 10 BUN 21 H Creatinine 1.28 H Est GFR ( Amer) 48 L Glucose 92 Calcium 9.3 Total Bilirubin 0.9 AST 30 Alkaline Phosphatase 76 Total Protein 7.4 Albumin 4.0 TSH 1.03 01/19/20 01/19/20 12:30 12:30 Creatine Kinase 63 CK-MB (CK-2) 1.08 Troponin I 0.069 Impressions: Chest X-Ray 01/19/20 00:00 IMPRESSION: NO ACUTE RADIOGRAPHIC FINDING IN THE CHEST. Assessment & Plan - Diagnosis (1) Hypertensive emergency Is this a current diagnosis for this admission?: Yes Plan: She has severe hypertension in the hypertensive emergency range, she will be started on nitroglycerin infusion (2) Acute systolic heart failure Is this a current diagnosis for this admission?: Yes Plan: She has mild systolic heart failure, start Entresto, beta-elisabeth (3) Pulmonary hypertension Is this a current diagnosis for this admission?: Yes Plan: The etiology of the pulmonary hypertension is not clear, CT angiogram did not demonstrate any pulmonary embolus, patient may benefit from oxygen but she is not symptomatic no shortness of breath, no chest pain, she is advised to use compression stockings of the lower extremities (4) Ascending aortic aneurysm Is this a current diagnosis for this admission?: Yes Plan: Blood pressure needs to be controlled to prevent dissection of the aorta (5) Dementia Qualifiers: Dementia type: Alzheimer's disease Alzheimer's disease onset: other onset Dementia behavioral disturbance: without behavioral disturbance Qualified Code(s): G30.8 - Other Alzheimer's disease; F02.80 - Dementia in other diseases classified elsewhere without behavioral disturbance Is this a current diagnosis for this admission?: Yes - Time Time Spent: Greater than 70 Minutes Smoking Cessation Education: over 10 minutes Medications reviewed and adjusted accordingly: Yes Anticipated Discharge Disposition: Home, Self Care Anticipated Discharge Timeframe: within 72 hours
[2020-01-19] MEDS: MEMANTINE HCL 10 MG TABLET PO SCH (19:03)
[2020-01-19] MEDS: FUROSEMIDE INJ/PF 40 MG/4 ML SDV IV SCH (19:28)
[2020-01-19] MEDS: SACUBITRIL/VALSARTAN 49 MG/51 MG TABLET PO SCH (21:38)
[2020-01-19] MEDS: ZOLPIDEM TARTRATE 5 MG TABLET PO SCH (21:38)
[2020-01-19 21:54] LABS: CREATINE KINASE MB 1.19 ng/mL (<4.55); TROPONIN I 0.083 ng/mL
[2020-01-19] MEDS ORDERED: ESZOPICLONE 3 MG PO SCH (22:00)
--- NOTE | 2020-01-19 23:24 | XCELERA REPORT ---
[address] [address] Transthoracic Echocardiogram Report Name: EVIN ALEXIS Age: 84 yrs Gender: Female : 1935 Patient Status: Inpatient Patient Location: [address] [place], [place] [address] Study Date: 01/19/2020 02:02 PM Height: 67 in Weight: 117 lb BSA: 1.6 m2 Procedure: A two-dimensional transthoracic echocardiogram with color flow and Doppler was performed. Study Quality: Fair. Reason For Study: CHF History: CHF. Ordering Physician: MICHAELA HUFF Performed By: Marcela Pinzon Interpretation Summary The left ventricle is normal in size. There is normal left ventricular wall thickness. LV EF is 50% Left ventricular systolic function is mildly reduced. Doppler measurements suggest impaired left ventricular relaxation, which is associated with grade I/IV or mild diastolic dysfunction There is mild global hypokinesis of the left ventricle. There is no thrombus. No ASD,VSD,or PFO seen. The right ventricle is mildly dilated. The right ventricular systolic function is normal. The right atrium is borderline dilated. The left atrium is mildly dilated. There is no evidence of mitral valve prolapse. There is no vegetation seen on the mitral valve. There is no mitral valve stenosis. There is a moderate amount of mitral regurgitation There is no aortic valvular vegetation. There is no aortic valve stenosis There is no LVOT obstruction. There is a mild amount of aortic regurgitation There is no tricuspid stenosis. There is a moderate to severe amount of tricuspid regurgitation There is moderate to severe pulmonary hypertension by echo RVSP is 57 to 62 mm of Hg , with RA mean of 15 to 20. There is a moderate amount of pulmonic regurgitation The aortic root is normal size. The inferior vena cava appeared dilated and decreased < 50% with respiration (RAP 15-20 mmHg) There is no pericardial effusion. MMode/2D Measurements & Calculations RVDd: 2.2 cm LVIDd: 4.9 cm FS: 25.4 % Ao root diam: 3.0 cm IVSd: 1.0 cm LVIDs: 3.6 cm EDV(Teich): LVPWd: 1.0 cm 110.9 ml Ao root area: ESV(Teich): 55.5 ml6.9 cm2 EF(Teich): 49.9 % EDV(MOD-sp4): SV(MOD-sp4): 71.6 ml 40.1 ml ESV(MOD-sp4): 31.4 ml EF(MOD-sp4): 56.1 % Doppler Measurements & Calculations MV E max nisha: MV dec slope: Ao V2 max: AI max nisha: 83.3 cm/sec 124.2 cm/sec 486.4 cm/sec MV A max nisha: 448.6 cm/sec2 Ao max P.2 mmHgAI max P.6 mmHg 110.0 cm/sec MV dec time: AI dec slope: MV E/A: 0.76 0.19 sec 232.4 cm/sec2 AI P1/2t: 612.9 msec LV V1 max PG: PA V2 max: PI end-d nisha: TR max nisha: 3.3 mmHg 74.5 cm/sec 142.9 cm/sec 323.4 cm/sec LV V1 max: PA max P.2 mmHg TR max P.9 mmHg 90.3 cm/sec Left Ventricle The left ventricle is normal in size. There is normal left ventricular wall thickness. LV EF is 50%. Left ventricular systolic function is mildly reduced. Doppler measurements suggest impaired left ventricular relaxation, which is associated with grade I/IV or mild diastolic dysfunction. There is mild global hypokinesis of the left ventricle. There is no thrombus. No ASD,VSD,or PFO seen. Right Ventricle The right ventricle is mildly dilated. The right ventricular systolic function is normal. Atria The right atrium is borderline dilated. The left atrium is mildly dilated. Mitral Valve There is no evidence of mitral valve prolapse. There is no vegetation seen on the mitral valve. There is no mitral valve stenosis. There is a moderate amount of mitral regurgitation. Aortic Valve There is no aortic valvular vegetation. There is no aortic valve stenosis. There is no LVOT obstruction. There is a mild amount of aortic regurgitation. Tricuspid Valve There is no tricuspid stenosis. There is a moderate to severe amount of tricuspid regurgitation. There is moderate to severe pulmonary hypertension by echo. RVSP is 57 to 62 mm of Hg , with RA mean of 15 to 20. Pulmonic Valve There is no pulmonic valvular stenosis. There is a moderate amount of pulmonic regurgitation. Great Vessels The aortic root is normal size. The inferior vena cava appeared dilated and decreased < 50% with respiration (RAP 15-20 mmHg). Effusions There is no pericardial effusion. : MICHAELA HUFF, Kym
[2020-01-20 06:09] LABS: CREATINE KINASE MB 1.32 ng/mL (<4.55); TROPONIN I 0.099 ng/mL
[2020-01-20] MEDS ORDERED: FUROSEMIDE 40 MG TABLET PO SCH (08:00)
[2020-01-20 09:01] LABS: ALKALINE PHOSPHATASE 84 U/L (38-126); ANION GAP 18 (5-19); ASPARTATE AMINO TRANSFERASE 36 U/L (14-36); BILIRUBIN,DIRECT 0.5 mg/dL (0.0-0.4); BILIRUBIN,TOTAL 1.5 mg/dL (0.2-1.3); BLOOD UREA NITROGEN 23 mg/dL (7-20); CALCIUM 9.8 mg/dL (8.4-10.2); CARBON DIOXIDE 26 mmol/L (22-30); CHLORIDE 96 mmol/L (98-107); GLUCOSE 159 mg/dL (75-110); POTASSIUM 3.4 mmol/L (3.6-5.0); TOTAL PROTEIN 9.2 g/dL (6.3-8.2)
[2020-01-20] MEDS ORDERED: (PENDING PHARMACY ID) (Potassium Chloride [Klor-Con M20] 20 MEQ) PO SCH (10:00)
[2020-01-20] MEDS: MEMANTINE HCL 10 MG TABLET PO SCH ×2 (12:05→18:30)
[2020-01-20] MEDS: DONEPEZIL HCL 5 MG TABLET PO SCH (12:11)
[2020-01-20] MEDS: POTASSIUM CHLORIDE 10 MEQ TABLET.ER PO SCH (12:11)
[2020-01-20] MEDS: METOPROLOL SUCCINATE 50 MG TAB.SR.24H PO SCH (12:12)
[2020-01-20] MEDS: ASPIRIN 81 MG TABLET, ENT COATED PO SCH (12:12)
[2020-01-20] MEDS: FUROSEMIDE INJ/PF 40 MG/4 ML SDV IV SCH (12:12)
[2020-01-20] MEDS: SACUBITRIL/VALSARTAN 49 MG/51 MG TABLET PO SCH ×2 (12:15→22:44)
--- NOTE | 2020-01-20 12:31 | RADIOLOGY REPORT (SQ) ---
EXAM DESCRIPTION: CTA CHEST IMAGES COMPLETED DATE/TIME: 01/20/2020 9:56 am REASON FOR STUDY: suspect PE. COMPARISON: Chest radiograph, 01/19/2020. TECHNIQUE: CT scan of the chest performed using helical scanning technique with dynamic intravenous contrast injection. Images reviewed with lung, soft tissue and bone windows. Reconstructed coronal and sagittal MPR images reviewed. Additional 3 dimensional post-processing performed to develop Maximal Intensity Projection images (SC P). All images stored on PACS. All CT scanners at this facility use dose modulation, iterative reconstruction, and/or weight based d osing when appropriate to reduce radiation dose to as low as reasonably achievable (ALARA). [facility]: Dose Right [facility]: CareDose [facility]: Dose Right [facility]: Teradose 4D [facility]: RealtimeBoard CONTRAST TYPE AND DOSE: contrast/concentration: Isovue 350.00 mmol/ml; Total Contrast Delivered: 60. 0 ml; Total Saline Delivered: 65.0 ml Contrast bolus optimized for the pulmonary arteries. Not diagnostic for the aorta. RENAL FUNCTION: GFR 38 today. RADIATION DOSE: CT Rad equipment meets quality standard of care and radiation dose reduction techniq ues were employed. CTDIvol: 7.5 - 9.3 mGy. DLP: 392 mGy-cm. . LIMITATIONS: None. FINDINGS: LUNGS AND PLEURA: The trachea has normal caliber and appearance. There is linear atelecta sis at the left lung base. No focal consolidation. No pleural effusion or pneumothorax. No suspici ous pulmonary nodules. AORTA AND GREAT VESSELS: There is aneurysmal dilation of the ascending thoracic aorta measuring 4 x 3 .8 cm. Calcifications at the origins of the great vessels. HEART: There is severe cardiomegaly. No pericardial effusion. Calcified coronary arteries noted. PULMONARY ARTERIES: No pulmonary emboli. The pulmonary arteries are enlarged with main pulmonary art gino measuring 38 mm diameter, right pulmonary artery measuring 27 mm, and left pulmonary artery measu ring 21 mm diameter. HILAR AND MEDIASTINAL STRUCTURES: No identified masses or abnormal nodes. HARDWARE: None in the chest. UPPER ABDOMEN: Colonic diverticulosis without evidence of diverticulitis. Ectasia of the infrarenal abdominal aorta measuring 2.9 x 3 cm. THYROID AND OTHER SOFT TISSUES: No masses. No adenopathy. 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 Spondylosis and degenerative disc disease in the thoracic spine. No suspicious bone lesions. 3D MIPS: Confirm above findings. OTHER: No other significant finding. IMPRESSION: 1. No pulmonary embolism. No acute pulmonary disease. 2. Enlarged pulmonary arteries, which can be seen with pulmonary arterial hypertension. Clinical cor relation and correlation with echocardiogram may provide additional information. 3. Severe cardiomegaly. 4. Ascending thoracic aortic aneurysm measuring maximum 4 cm diameter. 5. Infrarenal abdominal aortic ectasia measuring maximum 3 cm. 6. Colonic diverticulosis without evidence of diverticulitis. COMMENT: Quality ID # [id number]: Final reports with documentation of one or more dose reduction techniques (e.g., Automated exposure control, adjustment of the mA and/or kV according to patient size, use of iterative reconstruction technique) TECHNICAL DOCUMENTATION: JOB ID: [id number] 2010 [email or web address]- All Rights Reserved Reading location - IP/workstation name: [email or web address]
--- NOTE | 2020-01-20 18:30 | PDOC PROGRESS REPORT ---
Subjective Progress Note for:: 01/20/20 Subjective:: Patient seen today by the bedside, the blood pressure is labile presently on continuous IV nitroglycerin infusion. The plan of care was discussed with the patient's family the diagnosis, it is paramount that the blood pressure is controlled especially with ascending aorta aneurysm, she is a candidate for surgery at this time, I will consult outpatient with CT surgeon Reason For Visit: ACUTE CHF Physical Exam Vital Signs: Temp Pulse Resp BP Pulse Ox 98.3 F 73 18 158/96 H 99 01/20/20 15:24 01/20/20 15:24 01/20/20 15:24 01/20/20 15:24 01/20/20 15:24 Intake & Output 01/19/20 01/20/20 01/21/20 06:59 06:59 06:59 Intake Total 302 458 Output Total 1400 Balance -1098 458 Weight 50.2 kg General appearance: PRESENT: no acute distress Eye exam: PRESENT: PERRLA Respiratory exam: PRESENT: clear to auscultation siena Cardiovascular exam: PRESENT: +S1, +S2 GI/Abdominal exam: PRESENT: soft Neurological exam: PRESENT: alert Results Laboratory Results: 01/19/20 12:30 01/20/20 08:28 01/20/20 08:28 Sodium 139.6 Potassium 3.4 L Chloride 96 L Carbon Dioxide 26 Anion Gap 18 BUN 23 H Creatinine 1.39 H Est GFR ( Amer) 44 L Glucose 159 H Calcium 9.8 Total Bilirubin 1.5 H AST 36 Alkaline Phosphatase 84 Total Protein 9.2 H Albumin 5.0 01/19/20 01/19/20 01/19/20 12:30 12:30 20:42 Creatine Kinase 63 64 CK-MB (CK-2) 1.08 Troponin I 0.069 01/19/20 01/20/20 01/20/20 20:42 04:29 04:29 Creatine Kinase 69 CK-MB (CK-2) 1.19 1.32 Troponin I 0.083 0.099 Impressions: Chest X-Ray 01/19/20 00:00 IMPRESSION: NO ACUTE RADIOGRAPHIC FINDING IN THE CHEST. Chest/Abdomen CTA 01/20/20 00:00 IMPRESSION: 1. No pulmonary embolism. No acute pulmonary disease. 2. Enlarged pulmonary arteries, which can be seen with pulmonary arterial hypertension. Clinical correlation and correlation with echocardiogram may provide additional information. 3. Severe cardiomegaly. 4. Ascending thoracic aortic aneurysm measuring maximum 4 cm diameter. 5. Infrarenal abdominal aortic ectasia measuring maximum 3 cm. 6. Colonic diverticulosis without evidence of diverticulitis. Assessment & Plan - Diagnosis (1) Hypertensive emergency Is this a current diagnosis for this admission?: Yes Plan: Start hydralazine 50 mg 1 tablet 3 times a day (2) Acute systolic heart failure Is this a current diagnosis for this admission?: Yes Plan: She has mild CHF (3) Pulmonary hypertension Is this a current diagnosis for this admission?: Yes Plan: She will benefit from compressive stockings. Discontinue furosemide, this will reduce preload and this may provoke hypotension (4) Ascending aortic aneurysm Is this a current diagnosis for this admission?: Yes (5) Dementia Qualifiers: Dementia type: Alzheimer's disease Alzheimer's disease onset: other onset Dementia behavioral disturbance: without behavioral disturbance Qualified Code(s): G30.8 - Other Alzheimer's disease; F02.80 - Dementia in other diseases classified elsewhere without behavioral disturbance Is this a current diagnosis for this admission?: Yes Plan: Continue Aricept - Time Time Spent with patient: 35 or more minutes Level of Care: IMCU Medications reviewed and adjusted accordingly: Yes Anticipated discharge: Home Anticipated DC Timeframe: within 72 hours
[2020-01-20] MEDS: ENOXAPARIN SODIUM INJ 30 MG/0.3 ML DISP.SYRIN SUBCUT SCH ×2 (18:33→19:21)
[2020-01-20 21:25] LABS: ARTERIAL BLOOD BASE EXCESS 5.4 mmol/L; ARTERIAL BLOOD FIO2 ROOM AIR; ARTERIAL BLOOD H2CO3 1.09 mmol/L (1.05-1.35); ARTERIAL BLOOD HCO3 28.5 mmol/L (20-24); ARTERIAL BLOOD O2 SATURATION 97.8 % (94-98); ARTERIAL BLOOD PCO2 36.1 mmHg (35-45); ARTERIAL BLOOD PH 7.52 (7.35-7.45); ARTERIAL BLOOD PO2 94.1 mmHg (80-100); ARTERIAL BLOOD TOTAL CO2 29.6 mmol/L (21-25)
[2020-01-20] MEDS: HYDRALAZINE HCL 50 MG TABLET PO SCH (22:44)
[2020-01-20] MEDS: ZOLPIDEM TARTRATE 5 MG TABLET PO SCH (22:44)
[2020-01-21] MEDS ORDERED: NORMAL SALINE 500 ML IV ONE (01:30)
[2020-01-21 02:20] LABS: CREATINE KINASE MB 1.56 ng/mL (<4.55)
[2020-01-21 02:22] LABS: TROPONIN I 0.114 ng/mL
[2020-01-21] MEDS: HYDRALAZINE HCL 50 MG TABLET PO SCH ×3 (05:29→22:01)
--- NOTE | 2020-01-21 07:47 | EKG REPORT ---
SEVERITY:- ABNORMAL ECG - SINUS RHYTHM VENTRICULAR PREMATURE COMPLEX FIRST DEGREE AV BLOCK LEFT AXIS DEVIATION LVH WITH SECONDARY REPOLARIZATION ABNORMALITY ABNORMAL T, PROBABLE ISCHEMIA, LATERAL LEADS BORDERLINE PROLONGED QT INTERVAL : Confirmed by: Thang Joyce MD 21-Jan-2020 07:46:11
[2020-01-21 11:31] LABS: ABSOLUTE LYMPHOCYTES (AUTO) 1.6 10^3/uL (0.5-4.7); ABSOLUTE MONOCYTES (AUTO) 0.8 10^3/uL (0.1-1.4); ABSOLUTE NEUT (AUTO) 3.1 10^3/uL (1.7-8.2); BASOPHILS % (AUTO) 0.7 % (0-2); EOSINOPHILS % (AUTO) 0.1 % (0-6); HEMATOCRIT 36.5 % (36.0-47.0); HEMOGLOBIN 12.6 g/dL (12.0-15.5); LYMPHOCYTES % (AUTO) 28.4 % (13-45); MEAN CORPUSCULAR HEMOGLOBIN 31.4 pg (27.0-33.4); MEAN CORPUSCULAR HGB CONC 34.6 g/dL (32.0-36.0); MEAN CORPUSCULAR VOLUME 91 fl (80-97); MONOCYTES % (AUTO) 14.7 % (3-13); PLATELET COUNT 173 10^3/uL (150-450); RED BLOOD COUNT 4.03 10^6/uL (3.72-5.28); RED CELL DISTRIBUTION WIDTH 13.9 % (11.5-14.0); SEGMENTED NEUTROPHILS % (AUTO) 56.1 % (42-78); TOTAL CELLS COUNTED % (AUTO) 100 %; WHITE BLOOD COUNT 5.5 10^3/uL (4.0-10.5)
[2020-01-21 11:43] LABS: ALBUMIN 4.1 g/dL (3.5-5.0); ALKALINE PHOSPHATASE 66 U/L (38-126); ANION GAP 14 (5-19); ASPARTATE AMINO TRANSFERASE 35 U/L (14-36); BILIRUBIN,DIRECT 0.3 mg/dL (0.0-0.4); BILIRUBIN,TOTAL 1.1 mg/dL (0.2-1.3); BLOOD UREA NITROGEN 32 mg/dL (7-20); CALCIUM 9.3 mg/dL (8.4-10.2); CARBON DIOXIDE 30 mmol/L (22-30); CHLORIDE 97 mmol/L (98-107); CREATINE KINASE 145 U/L (30-135); GLUCOSE 156 mg/dL (75-110); TOTAL PROTEIN 7.6 g/dL (6.3-8.2)
[2020-01-21 11:55] LABS: CREATINE KINASE MB 6.13 ng/mL (<4.55)
[2020-01-21 11:59] LABS: TROPONIN I 2.15 ng/mL
[2020-01-21] MEDS: ASPIRIN 81 MG TABLET, ENT COATED PO SCH (12:32)
[2020-01-21] MEDS: DONEPEZIL HCL 5 MG TABLET PO SCH (12:32)
[2020-01-21] MEDS: MEMANTINE HCL 10 MG TABLET PO SCH ×2 (12:34→17:19)
[2020-01-21] MEDS: ENOXAPARIN SODIUM INJ 30 MG/0.3 ML DISP.SYRIN SUBCUT SCH (12:35)
[2020-01-21] MEDS: POTASSIUM CHLORIDE 10 MEQ TABLET.ER PO SCH ×3 (12:35→22:00)
[2020-01-21] MEDS: METOPROLOL SUCCINATE 50 MG TAB.SR.24H PO SCH (12:35)
[2020-01-21] MEDS: SACUBITRIL/VALSARTAN 49 MG/51 MG TABLET PO SCH ×2 (12:36→22:01)
[2020-01-21 16:29] LABS: CREATINE KINASE MB 6.43 ng/mL (<4.55); TROPONIN I 3.7 ng/mL
[2020-01-21] MEDS ORDERED: HEPARIN SOD (PORCINE) 1,000 UNIT/ML 10 ML VIAL IV PRN (17:00)
[2020-01-21 17:21] LABS: INTERNATIONAL RATION (INR) 1.15; PROTHROMBIN TIME 14.9 SEC (11.4-15.4)
[2020-01-21 17:22] LABS: PARTIAL THROMBOPLASTIN TIME 37.6 SEC (23.5-35.8)
[2020-01-21] MEDS: NITROGLYCERIN 2% OINTMENT 1 GM PACKET TP SCH ×2 (17:25→22:01)
[2020-01-21 17:36] LABS: ALBUMIN 4.1 g/dL (3.5-5.0); ALKALINE PHOSPHATASE 75 U/L (38-126); ANION GAP 13 (5-19); ASPARTATE AMINO TRANSFERASE 39 U/L (14-36); BILIRUBIN,DIRECT 0.2 mg/dL (0.0-0.4); BLOOD UREA NITROGEN 32 mg/dL (7-20); CALCIUM 9.3 mg/dL (8.4-10.2); CARBON DIOXIDE 28 mmol/L (22-30); CHLORIDE 99 mmol/L (98-107); GLUCOSE 137 mg/dL (75-110)
--- NOTE | 2020-01-21 17:41 | PDOC PROGRESS REPORT ---
Subjective Progress Note for:: 01/21/20 Subjective:: Patient seen by the bedside, she denies any chest pain or shortness of breath, last night ,she had episode of low blood pressure with EKG changes There was increased troponin as well Reason For Visit: ACUTE CHF Physical Exam Vital Signs: Temp Pulse Resp BP Pulse Ox 98.2 F 79 16 121/64 96 01/21/20 04:04 01/21/20 04:04 01/21/20 04:04 01/21/20 04:04 01/21/20 04:04 Intake & Output 01/20/20 01/21/20 01/22/20 06:59 06:59 06:59 Intake Total 302 1438 Output Total 1400 250 Balance -1098 1188 Weight 50.2 kg 51.2 kg General appearance: PRESENT: no acute distress Eye exam: PRESENT: PERRLA Respiratory exam: PRESENT: clear to auscultation [place]iena Cardiovascular exam: PRESENT: +S1, +S2 GI/Abdominal exam: PRESENT: soft Neurological exam: PRESENT: alert, CN II-XII grossly intact Results Laboratory Results: 01/21/20 10:10 01/21/20 10:10 01/20/20 01/21/20 01/21/20 20:48 10:10 10:10 WBC 5.5 RBC 4.03 Hgb 12.6 Hct 36.5 MCV 91 MCH 31.4 MCHC 34.6 RDW 13.9 Plt Count 173 Seg Neutrophils % 56.1 Carbonic Acid 1.09 HCO3/H2CO3 Ratio 26:1 ABG pH 7.52 H ABG pCO2 36.1 ABG pO2 94.1 ABG HCO3 28.5 H ABG O2 Saturation 97.8 ABG Base Excess 5.4 FiO2 ROOM AIR Sodium 140.5 Potassium 3.0 L* Chloride 97 L Carbon Dioxide 30 Anion Gap 14 BUN 32 H Creatinine 2.01 H Est GFR ( Amer) 28 L Glucose 156 H Calcium 9.3 Total Bilirubin 1.1 AST 35 Alkaline Phosphatase 66 Total Protein 7.6 Albumin 4.1 01/19/20 01/19/20 01/19/20 12:30 12:30 12:30 Creatine Kinase 63 CK-MB (CK-2) 1.08 Troponin I 0.069 NT-Pro-B Natriuret Pep 3330 H 01/19/20 01/19/20 01/20/20 20:42 20:42 04:29 Creatine Kinase 64 69 CK-MB (CK-2) 1.19 Troponin I 0.083 NT-Pro-B Natriuret Pep 01/20/20 01/21/20 01/21/20 04:29 01:39 01:39 Creatine Kinase 97 CK-MB (CK-2) 1.32 1.56 Troponin I 0.099 0.114 NT-Pro-B Natriuret Pep 01/21/20 01/21/20 01/21/20 10:10 10:10 10:10 Creatine Kinase Cancelled 145 H CK-MB (CK-2) 6.13 H Troponin I 2.150 NT-Pro-B Natriuret Pep 01/21/20 01/21/20 15:40 15:40 Creatine Kinase 149 H CK-MB (CK-2) 6.43 H Troponin I 3.700 NT-Pro-B Natriuret Pep Impressions: Chest X-Ray 01/19/20 00:00 IMPRESSION: NO ACUTE RADIOGRAPHIC FINDING IN THE CHEST. Chest/Abdomen CTA 01/20/20 00:00 IMPRESSION: 1. No pulmonary embolism. No acute pulmonary disease. 2. Enlarged pulmonary arteries, which can be seen with pulmonary arterial hypertension. Clinical correlation and correlation with echocardiogram may provide additional information. 3. Severe cardiomegaly. 4. Ascending thoracic aortic aneurysm measuring maximum 4 cm diameter. 5. Infrarenal abdominal aortic ectasia measuring maximum 3 cm. 6. Colonic diverticulosis without evidence of diverticulitis. Assessment & Plan - Diagnosis (1) Hypertensive emergency Is this a current diagnosis for this admission?: Yes (2) Acute systolic heart failure Is this a current diagnosis for this admission?: Yes (3) Pulmonary hypertension Is this a current diagnosis for this admission?: Yes (4) Ascending aortic aneurysm Is this a current diagnosis for this admission?: Yes (5) Dementia Qualifiers: Dementia type: Alzheimer's disease Alzheimer's disease onset: other onset Dementia behavioral disturbance: without behavioral disturbance Qualified Code(s): G30.8 - Other Alzheimer's disease; F02.80 - Dementia in other diseases classified elsewhere without behavioral disturbance Is this a current diagnosis for this admission?: Yes (6) NSTEMI (non-ST elevated myocardial infarction) Is this a current diagnosis for this admission?: Yes Plan: She has non-STEMI, consult Dr. aNsh, cardiology (7) Hypotension Qualifiers: Hypotension type: unspecified hypotension type Qualified Code(s): I95.9 - Hypotension, unspecified Is this a current diagnosis for this admission?: Yes Plan: Patient was given boluses of fluid blood pressure restored - Time Time Spent with patient: 35 or more minutes Level of Care: MEDICAL - Plan Summary Plan Summary: She has multiple acute conditions including non-STEMI, hypertension, hypertensive emergency, ascending aorta aneurysm. She is asymptomatic, she denied chest pain, shortness of breath, but she was very emotional today, prayful and thankful
[2020-01-21] MEDS: HEPARIN SODIUM,PORCINE/D5W 25,000 UNIT/250 ML RTUINJ IV PRN (17:42)
[2020-01-21 17:43] LABS: POTASSIUM 2.9 mmol/L (3.6-5.0)
--- NOTE | 2020-01-21 21:25 | PDOC CONSULTATION ---
Consultation-Blank Consultation: CARDIOLOGY CONSULTATION by Dr. Kym Erickson on 01/21/2020. Patient seen at 6:30 PM. 60 minutes spent on the patient with more than 50% of time spent in direct patient care. CONSULT REQUESTING PHYSICIAN: Dr. Gonzalez REASON FOR CONSULTATION: Patient with elevated troponin, and echo evidence of significant regurgitant lesions in the tricuspid and mitral valve and pulmonary hypertension. HISTORY OF PRESENT ILLNESS: Patient is a 84-year-old Afro-[place] female with known history of hypertension, mild dementia with no behavioral changes and pleasantly confused states that since a few weeks has been having leg swelling. She denies any chest pain or discomfort. There is no shortness of breath PND or thopnea. The patient states that she went to see Dr. Gonzalez. As per Dr. Gonzalez's note he had a stat venous Doppler of the legs which showed no DVT. The patient had an echocardiogram which showed no pulmonary emboli. There was also ascending aortic aneurysm measuring 4 x 3.8 cm. The patient had an echocardiogram which showed normal male ventricular chamber size. There is mild global hypokinesis with ejection fraction 50%. There is a moderate to severe tricuspid regurgitation with moderate to severe pulmonary hypertension. There is also moderate mitral regurgitation. The patient although she denies chest pain with troponin went 0.0692 2.15. There are also some EKG changes, but on repeated questioning the patient denies any chest pain or discomfort. The patient does have a history of mild dementia and hence I am not sure if her history is reliable. Also on admission the patient's kidney function was slightly reduced. But after the CTA her GFR is reduced to 28 mL/min minute. Past Medical History Cardiac Medical History: Reports: Hypertension Pulmonary Medical History: Reports: Other - Pulmonary hypertension Psychiatric Medical History: Reports: Dementia Social History Smoking Status: Former Smoker Electronic Cigarette use?: No Number of Years Smokin Last Time Smoked: 1997 Frequency of Alcohol Use: None Hx Recreational Drug Use: No Drugs: None Hx Prescription Drug Abuse: No Family History Family History: Reviewed & Not Pertinent Parental Family History Reviewed: Yes Children Family History Reviewed: Yes Sibling(s) Family History Reviewed.: Yes Medication/Allergy Home Medications: Aspirin [Ecotrin 81 mg EC Tablet] 81 mg PO DAILY 01/19/20 Donepezil HCl [Aricept 5 mg Tablet] 5 mg PO DAILY 01/19/20 Eszopiclone 3 mg PO QHS 01/19/20 Furosemide [Lasix 40 mg Tablet] 40 mg PO QAM 01/19/20 Memantine HCl 10 mg PO BID 01/19/20 Metoprolol Succinate [Toprol Xl] 100 mg PO DAILY 01/19/20 Potassium Chloride [Klor-Con M20] 20 meq PO DAILY 01/19/20 Allergies/Adverse Reactions: No Known Allergies Allergy (Unverified 05/03/13 14:41) RESUSCITATION STATUS: The patient is a full code. The patient's daughter is her surrogate healthcare decision maker. Current Medications Generic Name Dose Route Start Last Admin Trade Name Freq PRN Reason Stop Dose Admin Aspirin 81 mg 01/20/20 10:00 01/21/20 12:32 Ecotrin 81 Mg Ec Tablet PO 02/19/20 09:59 81 mg DAILY HENRY Administration Donepezil HCl 5 mg 01/20/20 10:00 01/21/20 12:32 Aricept 5 Mg Tablet PO 02/19/20 09:59 5 mg DAILY HENRY Administration Heparin Sodium (Porcine) 0 - 12,000 unit 01/21/20 17:00 01/21/20 17:41 Heparin Inj 1,000 Unit/Ml 10 Ml Vial IV 02/20/20 16:59 3,100 units .BOLUS PER PROTOCOL PRN Administration RESPOND TO aPTT VALUES Protocol Hydralazine HCl 50 mg 01/20/20 22:00 01/21/20 22:01 Apresoline 50 Mg Tablet PO 02/19/20 21:59 50 mg Q8 HENRY Administration Heparin Sodium/Dextrose 25,000 unit in 250 mls @ 0 mls/hr 01/21/20 17:00 01/21/20 17:42 Heparin Rtu 25,000 Unit/250 Ml D5w Premix IV 02/20/20 16:59 6.14 ml/hr CONTINUOUS PRN 6.14 mls/hr THIS MED IS NOT "PRN" Administration Protocol Titrate Memantine 10 mg 01/19/20 18:00 01/21/20 17:19 Namenda 10 Mg Tablet PO 02/18/20 17:59 10 mg BID HENRY Administration Metoprolol Succinate 100 mg 01/20/20 10:00 01/21/20 12:35 Toprol Xl 50 Mg Tab.Sr PO 02/19/20 09:59 100 mg DAILY HENRY Administration Nitroglycerin 0.5 gm 01/21/20 17:00 01/21/20 22:01 Nitrol 2% Ointment 1gm Packet TP 02/20/20 16:59 0.5 gm Q8 HENRY Administration Potassium Chloride 20 meq 01/20/20 10:00 01/21/20 12:35 Klor-Con 10 Meq Tablet Er PO 02/19/20 09:59 20 meq DAILY HENRY Administration Potassium Chloride 40 meq 01/21/20 18:00 01/21/20 22:00 Klor-Con 10 Meq Tablet Er PO 01/22/20 02:01 40 meq Q4 HENRY Administration Sacubitril/Valsartan 1 tab 01/19/20 22:00 01/21/20 22:01 Entresto 49 Mg/51 Mg Tablet PO 02/18/20 21:59 1 tab Q12 HENRY Administration Zolpidem Tartrate 5 mg 01/19/20 22:00 01/21/20 22:01 Ambien 5 Mg Tablet PO 01/26/20 21:59 5 mg QHS HENRY Administration Discontinued Medications Generic Name Dose Route Start Last Admin Trade Name Freq PRN Reason Stop Dose Admin Enoxaparin Sodium 30 mg 01/20/20 18:30 01/21/20 12:35 Lovenox Inj 30 Mg/0.3 Ml Disp.Syrin SUBCUT 02/19/20 18:29 30 mg DAILY HENRY Administration Furosemide 40 mg 01/20/20 08:00 Lasix 40 Mg Tablet PO 02/19/20 07:59 QAM HENRY Furosemide 40 mg 01/19/20 19:00 01/20/20 12:12 Lasix Inj/Pf 40 Mg/4 Ml Sdv IV 02/18/20 18:59 40 mg DAILY HENRY Administration Nitroglycerin/Dextrose 50 mg in 250 mls @ 0 mls/hr 01/19/20 17:38 01/20/20 23:55 Ntg Rtu 50 Mg/D5w 250 Ml Iv Premix Bottle IV 02/18/20 17:37 Infused CONTINUOUS PRN Titration THIS MED IS NOT "PRN" Protocol Titrate Sodium Chloride 500 mls @ 0 mls/hr 01/21/20 01:30 01/21/20 00:32 Nacl 0.9% 500 Ml Iv Soln IV 01/21/20 01:31 Infused BOLUS ONE Infusion Wide Open Review of Systems Constitutional: ABSENT: chills, fever(s), headache(s), weight gain, weight loss Eyes: ABSENT: visual disturbances Ears: ABSENT: hearing changes Cardiovascular: PRESENT: edema. ABSENT: chest pain, dyspnea on exertion, orthropnea, palpitations Respiratory: ABSENT: cough, hemoptysis Gastrointestinal: ABSENT: abdominal pain, constipation, diarrhea, hematemesis, hematochezia, nausea, vomiting Genitourinary: ABSENT: dysuria, hematuria Musculoskeletal: ABSENT: joint swelling Integumentary: ABSENT: rash, wounds Neurological: ABSENT: abnormal gait, abnormal speech, confusion, dizziness, focal weakness, syncope Psychiatric: ABSENT: anxiety, depression, homidical ideation, suicidal ideation Endocrine: ABSENT: cold intolerance, heat intolerance, menstrual abnormalities, polydipsia, polyuria Hematologic/Lymphatic: ABSENT: easy bleeding, easy bruising, lymphadenopathy Physical Exam the patient is of frail build but appears to be in no acute distress. Selected Entries 01/21/20 20:14 Temperature 99.0 F Temperature Oral Source Pulse Rate 68 Respiratory 16 Rate Blood Pressure 123/60 Blood Pressure 81 Mean BP Location Left Arm BP Position Supine O2 Sat by Pulse 100 Oximetry Oxygen delivery. Method None patient on room air HEAD: Is atraumatic normocephalic. EYES: Pupils are equal round regular reactive light accommodation. Extraocular movements are normal. There is no conjunctival pallor. There is no scleral icterus. EARS: Tympanic membranes are intact. External auditory canals are clear. NOSE: There is no deviated nasal septum. There is no inflammation nasal mucous membrane. MOUTH: Mucous membranes of mouth are moist. Tongue is moist. There is no ulcers. There is no bleeding from the gums. THROAT: There is no redness of the oropharynx. There is no exudates. SKIN: There is no skin rashes. There is no petechia or ecchymosis. There is no skin lesions. NECK: Is supple. There i is mild JVD. Carotids are equal there is no bruit. There is no lymphadenopathy. There is no goiter. There is no accessory muscle respiration use. Trachea central. LUNGS: There is diminished air entry prolonged expiration. There is a few bibasilar rales of CHF. HEART: S1-S2 is heard. There is no S3 gallop. There is no S4 gallop. There is systolic murmur left sternal border and the apex there is no rub. There is murmur of mitral regurgitation and tricuspid regurgitation present. ABDOMEN: Soft. Nontender there is no hepatosplenomegaly bowel sounds are well heard. Bowel sounds well heard. EXTREMITIES: Femorals are well felt. There is no femoral bruits. Leg pulses are well felt. There is no pedal edema. There is no DVT or cellulitis. THERE is no cyanosis or clubbing. There is no calf tenderness. [employer]: The patient is conscious awake alert and pleasantly confused PSYCHIATRIC: Patient does not appear to be agitated or anxious. Her affect seems to be somewhat flat. EKG #1:SINUS RHYTHM [1AVB] . FIRST DEGREE AV BLOCK [LAD] . LEFT AXIS DEVIATION [LVH] . LEFT VENTRICULAR HYPERTROPHY EKG #2. SINUS RHYTHM [VPC] . VENTRICULAR PREMATURE COMPLEX [1AVB] . FIRST DEGREE AV BLOCK [LAD] . LEFT AXIS DEVIATION [LVHREP] . LVH WITH SECONDARY REPOLARIZATION ABNORMALITY [T6LA] . ABNORMAL T, PROBABLE ISCHEMIA, LATERAL LEADS [LQTB] . BORDERLINE PROLONGED QT INTERVAL Labs- Entire Visit 01/19/20 01/19/20 01/19/20 12:30 12:30 12:30 WBC 3.5 L RBC 3.55 L Hgb 11.3 L Hct 31.9 L MCV 90 MCH 31.8 MCHC 35.4 RDW 14.1 H Plt Count 154 Lymph % (Auto) 45.3 H [place] % (Auto) 15.8 H Eos % (Auto) 1.8 Baso % (Auto) 1.2 Absolute Neuts (auto) 1.3 L Absolute Lymphs (auto) 1.6 Absolute Monos (auto) 0.6 Absolute Eos (auto) 0.1 Absolute Basos (auto) 0.0 Seg Neutrophils % 35.9 L PT INR APTT D-Dimer Carbonic Acid HCO3/H2CO3 Ratio ABG pH ABG pCO2 ABG pO2 ABG HCO3 ABG Total CO2 ABG O2 Saturation ABG Base Excess FiO2 Sodium Potassium Chloride Carbon Dioxide Anion Gap BUN Creatinine Est GFR ( Amer) Est GFR (MDRD) Non-Af Glucose Calcium Total Bilirubin Direct Bilirubin Neonat Total Bilirubin Neonat Direct Bilirubin Neonat Indirect Bili AST ALT Alkaline Phosphatase Creatine Kinase CK-MB (CK-2) Troponin I B-Natriuretic Peptide 418.5 H NT-Pro-B Natriuret Pep Total Protein Albumin TSH 1.03 01/19/20 01/19/20 01/19/20 12:30 12:30 12:30 WBC RBC Hgb Hct MCV MCH MCHC RDW Plt Count Lymph % (Auto) [place] % (Auto) Eos % (Auto) Baso % (Auto) Absolute Neuts (auto) Absolute Lymphs (auto) Absolute Monos (auto) Absolute Eos (auto) Absolute Basos (auto) Seg Neutrophils % PT INR APTT D-Dimer Carbonic Acid HCO3/H2CO3 Ratio ABG pH ABG pCO2 ABG pO2 ABG HCO3 ABG Total CO2 ABG O2 Saturation ABG Base Excess FiO2 Sodium 138.8 Potassium 3.2 L Chloride 99 Carbon Dioxide 30 Anion Gap 10 BUN 21 H Creatinine 1.28 H Est GFR ( Amer) 48 L Est GFR (MDRD) Non-Af 40 L Glucose 92 Calcium 9.3 Total Bilirubin 0.9 Direct Bilirubin 0.4 Neonat Total Bilirubin Not Reportable Neonat Direct Bilirubin Not Reportable Neonat Indirect Bili Not Reportable AST 30 ALT 12 Alkaline Phosphatase 76 Creatine Kinase 63 CK-MB (CK-2) 1.08 Troponin I 0.069 B-Natriuretic Peptide NT-Pro-B Natriuret Pep Total Protein 7.4 Albumin 4.0 TSH 01/19/20 01/19/20 01/19/20 12:30 20:42 20:42 WBC RBC Hgb Hct MCV MCH MCHC RDW Plt Count Lymph % (Auto) [place] % (Auto) Eos % (Auto) Baso % (Auto) Absolute Neuts (auto) Absolute Lymphs (auto) Absolute Monos (auto) Absolute Eos (auto) Absolute Basos (auto) Seg Neutrophils % PT INR APTT D-Dimer Carbonic Acid HCO3/H2CO3 Ratio ABG pH ABG pCO2 ABG pO2 ABG HCO3 ABG Total CO2 ABG O2 Saturation ABG Base Excess FiO2 Sodium Potassium Chloride Carbon Dioxide Anion Gap BUN Creatinine Est GFR ( Amer) Est GFR (MDRD) Non-Af Glucose Calcium Total Bilirubin Direct Bilirubin Neonat Total Bilirubin Neonat Direct Bilirubin Neonat Indirect Bili AST ALT Alkaline Phosphatase Creatine Kinase 64 CK-MB (CK-2) 1.19 Troponin I 0.083 B-Natriuretic Peptide NT-Pro-B Natriuret Pep 3330 H Total Protein Albumin TSH 01/20/20 01/20/20 01/20/20 04:29 04:29 08:28 WBC RBC Hgb Hct MCV MCH MCHC RDW Plt Count Lymph % (Auto) [place] % (Auto) Eos % (Auto) Baso % (Auto) Absolute Neuts (auto) Absolute Lymphs (auto) Absolute Monos (auto) Absolute Eos (auto) Absolute Basos (auto) Seg Neutrophils % PT INR APTT D-Dimer Carbonic Acid HCO3/H2CO3 Ratio ABG pH ABG pCO2 ABG pO2 ABG HCO3 ABG Total CO2 ABG O2 Saturation ABG Base Excess FiO2 Sodium 139.6 Potassium 3.4 L Chloride 96 L Carbon Dioxide 26 Anion Gap 18 BUN 23 H Creatinine 1.39 H Est GFR ( Amer) 44 L Est GFR (MDRD) Non-Af 36 L Glucose 159 H Calcium 9.8 Total Bilirubin 1.5 H Direct Bilirubin 0.5 H Neonat Total Bilirubin Not Reportable Neonat Direct Bilirubin Not Reportable Neonat Indirect Bili Not Reportable AST 36 ALT 18 Alkaline Phosphatase 84 Creatine Kinase 69 CK-MB (CK-2) 1.32 Troponin I 0.099 B-Natriuretic Peptide NT-Pro-B Natriuret Pep Total Protein 9.2 H Albumin 5.0 TSH 01/20/20 01/20/20 01/21/20 08:28 20:48 01:39 WBC RBC Hgb Hct MCV MCH MCHC RDW Plt Count Lymph % (Auto) [place] % (Auto) Eos % (Auto) Baso % (Auto) Absolute Neuts (auto) Absolute Lymphs (auto) Absolute Monos (auto) Absolute Eos (auto) Absolute Basos (auto) Seg Neutrophils % PT INR APTT D-Dimer 2.72 H Carbonic Acid 1.09 HCO3/H2CO3 Ratio 26:1 ABG pH 7.52 H ABG pCO2 36.1 ABG pO2 94.1 ABG HCO3 28.5 H ABG Total CO2 29.6 H ABG O2 Saturation 97.8 ABG Base Excess 5.4 FiO2 ROOM AIR Sodium Potassium Chloride Carbon Dioxide Anion Gap BUN Creatinine Est GFR ( Amer) Est GFR (MDRD) Non-Af Glucose Calcium Total Bilirubin Direct Bilirubin Neonat Total Bilirubin Neonat Direct Bilirubin Neonat Indirect Bili AST ALT Alkaline Phosphatase Creatine Kinase 97 CK-MB (CK-2) Troponin I B-Natriuretic Peptide NT-Pro-B Natriuret Pep Total Protein Albumin TSH 01/21/20 01/21/20 01/21/20 01:39 10:10 10:10 WBC RBC Hgb Hct MCV MCH MCHC RDW Plt Count Lymph % (Auto) [place] % (Auto) Eos % (Auto) Baso % (Auto) Absolute Neuts (auto) Absolute Lymphs (auto) Absolute Monos (auto) Absolute Eos (auto) Absolute Basos (auto) Seg Neutrophils % PT INR APTT D-Dimer Carbonic Acid HCO3/H2CO3 Ratio ABG pH ABG pCO2 ABG pO2 ABG HCO3 ABG Total CO2 ABG O2 Saturation ABG Base Excess FiO2 Sodium Potassium Chloride Carbon Dioxide Anion Gap BUN Creatinine Est GFR ( Amer) Est GFR (MDRD) Non-Af Glucose Calcium Total Bilirubin Direct Bilirubin Neonat Total Bilirubin Neonat Direct Bilirubin Neonat Indirect Bili AST ALT Alkaline Phosphatase Creatine Kinase Cancelled CK-MB (CK-2) 1.56 6.13 H Troponin I 0.114 2.150 B-Natriuretic Peptide NT-Pro-B Natriuret Pep Total Protein Albumin [facility] 01/21/20 01/21/20 01/21/20 10:10 10:10 15:40 WBC 5.5 RBC 4.03 Hgb 12.6 Hct 36.5 MCV 91 MCH 31.4 MCHC 34.6 RDW 13.9 Plt Count 173 Lymph % (Auto) 28.4 [place] % (Auto) 14.7 H Eos % (Auto) 0.1 Baso % (Auto) 0.7 Absolute Neuts (auto) 3.1 Absolute Lymphs (auto) 1.6 Absolute Monos (auto) 0.8 Absolute Eos (auto) 0.0 Absolute Basos (auto) 0.0 Seg Neutrophils % 56.1 PT INR APTT D-Dimer Carbonic Acid HCO3/H2CO3 Ratio ABG pH ABG pCO2 ABG pO2 ABG HCO3 ABG Total CO2 ABG O2 Saturation ABG Base Excess FiO2 Sodium 140.5 Potassium 3.0 L* Chloride 97 L Carbon Dioxide 30 Anion Gap 14 BUN 32 H Creatinine 2.01 H Est GFR ( Amer) 28 L Est GFR (MDRD) Non-Af 24 L Glucose 156 H Calcium 9.3 Total Bilirubin 1.1 Direct Bilirubin 0.3 Neonat Total Bilirubin Not Reportable Neonat Direct Bilirubin Not Reportable Neonat Indirect Bili Not Reportable AST 35 ALT 15 Alkaline Phosphatase 66 Creatine Kinase 145 H 149 H CK-MB (CK-2) Troponin I B-Natriuretic Peptide NT-Pro-B Natriuret Pep Total Protein 7.6 Albumin 4.1 TSH 01/21/20 01/21/20 01/21/20 15:40 15:40 16:53 WBC RBC Hgb Hct MCV MCH MCHC RDW Plt Count Lymph % (Auto) [place] % (Auto) Eos % (Auto) Baso % (Auto) Absolute Neuts (auto) Absolute Lymphs (auto) Absolute Monos (auto) Absolute Eos (auto) Absolute Basos (auto) Seg Neutrophils % PT 14.9 INR 1.15 APTT 37.6 H D-Dimer Carbonic Acid HCO3/H2CO3 Ratio ABG pH ABG pCO2 ABG pO2 ABG HCO3 ABG Total CO2 ABG O2 Saturation ABG Base Excess FiO2 Sodium 139.5 Potassium 2.9 L* Chloride 99 Carbon Dioxide 28 Anion Gap 13 BUN 32 H Creatinine 1.85 H Est GFR ( Amer) 31 L Est GFR (MDRD) Non-Af 26 L Glucose 137 H Calcium 9.3 Total Bilirubin 1.0 Direct Bilirubin 0.2 Neonat Total Bilirubin Not Reportable Neonat Direct Bilirubin Not Reportable Neonat Indirect Bili Not Reportable AST 39 H ALT 14 Alkaline Phosphatase 75 Creatine Kinase CK-MB (CK-2) 6.43 H Troponin I 3.700 B-Natriuretic Peptide NT-Pro-B Natriuret Pep Total Protein 8.0 Albumin 4.1 [facility] 01/21/20 23:34 WBC RBC Hgb Hct MCV MCH MCHC RDW Plt Count Lymph % (Auto) [place] % (Auto) Eos % (Auto) Baso % (Auto) Absolute Neuts (auto) Absolute Lymphs (auto) Absolute Monos (auto) Absolute Eos (auto) Absolute Basos (auto) Seg Neutrophils % PT INR APTT 137.2 H* D D-Dimer Carbonic Acid HCO3/H2CO3 Ratio ABG pH ABG pCO2 ABG pO2 ABG HCO3 ABG Total CO2 ABG O2 Saturation ABG Base Excess FiO2 Sodium Potassium Chloride Carbon Dioxide Anion Gap BUN Creatinine Est GFR ( Amer) Est GFR (MDRD) Non-Af Glucose Calcium Total Bilirubin Direct Bilirubin Neonat Total Bilirubin Neonat Direct Bilirubin Neonat Indirect Bili AST ALT Alkaline Phosphatase Creatine Kinase CK-MB (CK-2) Troponin I B-Natriuretic Peptide NT-Pro-B Natriuret Pep Total Protein Albumin TSH Chest X-Ray 01/19/20 00:00 IMPRESSION: NO ACUTE RADIOGRAPHIC FINDING IN THE CHEST. Chest/Abdomen CTA 01/20/20 00:00 IMPRESSION: 1. No pulmonary embolism. No acute pulmonary disease. 2. Enlarged pulmonary arteries, which can be seen with pulmonary arterial hypertension. Clinical correlation and correlation with echocardiogram may provide additional information. 3. Severe cardiomegaly. 4. Ascending thoracic aortic aneurysm measuring maximum 4 cm diameter. 5. Infrarenal abdominal aortic ectasia measuring maximum 3 cm. 6. Colonic diverticulosis without evidence of diverticulitis. IMPRESSION/RECOMMENDATION: 1. Non-ST relation [facility]: This cannot be entirely excluded especially with the patient's dementia and not a good historian, and with the EKG changes. Although this could be supply demand mismatch secondary to the patient's acute renal failure and heart failure. In view of this would start the patient on low-dose IV heparin for at least 48 hours later would recommend [place] IV Lexiscan Cardiolite stress test. 2. Most likely acute on chronic systolic heart failure. 3. Hypertension: At present blood pressure seems to be well controlled. 4. Acute renal failure: Avoid nephrotoxic drugs 5. 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 Moderate mitral regurgitation: Recommend afterload reduction 7. Moderate to severe tricuspid regurgitation and moderate to severe pulmonary hypertension 8. Dementia Medications reviewed medical regimen management plan discussed with attending provider on the case medical decision making is of high complexity. 60 minutes spent as patient more than 50% of time spent in direct patient care. Will follow
[2020-01-21] MEDS: ZOLPIDEM TARTRATE 5 MG TABLET PO SCH (22:01)
[2020-01-22] MEDS: POTASSIUM CHLORIDE 10 MEQ TABLET.ER PO SCH ×2 (01:38→09:37)
[2020-01-22] MEDS: HYDRALAZINE HCL 50 MG TABLET PO SCH ×3 (05:46→22:02)
[2020-01-22] MEDS: NITROGLYCERIN 2% OINTMENT 1 GM PACKET TP SCH ×3 (07:01→22:02)
[2020-01-22 08:39] LABS: ABSOLUTE BASOPHILS # (AUTO) 0.1 10^3/uL (0.0-0.2); ABSOLUTE LYMPHOCYTES (AUTO) 1.9 10^3/uL (0.5-4.7); ABSOLUTE MONOCYTES (AUTO) 0.7 10^3/uL (0.1-1.4); ABSOLUTE NEUT (AUTO) 2.1 10^3/uL (1.7-8.2); BASOPHILS % (AUTO) 1.3 % (0-2); EOSINOPHILS % (AUTO) 0.1 % (0-6); HEMOGLOBIN 11.8 g/dL (12.0-15.5); LYMPHOCYTES % (AUTO) 39.1 % (13-45); MEAN CORPUSCULAR HEMOGLOBIN 31.6 pg (27.0-33.4); MEAN CORPUSCULAR HGB CONC 34.8 g/dL (32.0-36.0); MEAN CORPUSCULAR VOLUME 91 fl (80-97); MONOCYTES % (AUTO) 15.6 % (3-13); PLATELET COUNT 170 10^3/uL (150-450); RED BLOOD COUNT 3.75 10^6/uL (3.72-5.28); RED CELL DISTRIBUTION WIDTH 14.2 % (11.5-14.0); SEGMENTED NEUTROPHILS % (AUTO) 43.9 % (42-78); TOTAL CELLS COUNTED % (AUTO) 100 %; WHITE BLOOD COUNT 4.8 10^3/uL (4.0-10.5)
[2020-01-22 08:53] LABS: ALBUMIN 3.7 g/dL (3.5-5.0); ALKALINE PHOSPHATASE 63 U/L (38-126); ANION GAP 11 (5-19); ASPARTATE AMINO TRANSFERASE 34 U/L (14-36); BILIRUBIN,DIRECT 0.3 mg/dL (0.0-0.4); BILIRUBIN,TOTAL 1.1 mg/dL (0.2-1.3); BLOOD UREA NITROGEN 34 mg/dL (7-20); CALCIUM 9.3 mg/dL (8.4-10.2); CARBON DIOXIDE 25 mmol/L (22-30); CHLORIDE 104 mmol/L (98-107); GLUCOSE 100 mg/dL (75-110)
[2020-01-22 09:05] LABS: POTASSIUM 4.6 mmol/L (3.6-5.0)
[2020-01-22] MEDS: MEMANTINE HCL 10 MG TABLET PO SCH ×2 (09:41→17:35)
[2020-01-22] MEDS: METOPROLOL SUCCINATE 50 MG TAB.SR.24H PO SCH (09:42)
[2020-01-22] MEDS: DONEPEZIL HCL 5 MG TABLET PO SCH (09:42)
[2020-01-22] MEDS: SACUBITRIL/VALSARTAN 49 MG/51 MG TABLET PO SCH ×2 (09:42→22:02)
[2020-01-22] MEDS: ASPIRIN 81 MG TABLET, ENT COATED PO SCH (09:42)
--- NOTE | 2020-01-22 19:32 | Progress Note ---
Provider Note Provider Note: CARDIOLOGY PROGRESS NOTE by Dr. Kym Levi on 01/22/2020 SUBJECTIVE: The patient appears to be comfortable. She again vehemently denies any chest pain or discomfort. There is no shortness of breath. There is no PND orthopnea or leg edema is much improved. There is no arrhythmias seen on the monitor. There is no bleeding on heparin. The patient's troponin peaked at 3.7 and is trending down. PHYSICAL EXAMINATION: Patient is a frail build but in no acute distress. Selected Entries 01/22/20 15:40 Temperature 98.3 F Temperature Oral Source Pulse Rate 71 Respiratory 18 Rate Blood Pressure 123/53 L Blood Pressure 76 Mean BP Location Left Arm BP Position Supine O2 Sat by Pulse 100 Oximetry Oxygen Delivery Room Air Method HEAD: Is atraumatic normocephalic. EYES: Pupils are equal round regular reactive light accommodation. Extraocular movements are normal. There is no conjunctival pallor. There is no scleral icterus. EARS: Tympanic membranes are intact. External auditory canals are clear. NOSE: There is no deviated nasal septum. There is no inflammation nasal mucous membrane. MOUTH: Mucous membranes of mouth are moist. Tongue is moist. There is no ulcers. There is no bleeding from the gums. THROAT: There is no redness of the oropharynx. There is no exudates. SKIN: There is no skin rashes. There is no petechia or ecchymosis. There is no skin lesions. NECK: Is supple. There i is mild JVD. Carotids are equal there is no bruit. There is no lymphadenopathy. There is no goiter. There is no accessory muscle respiration use. Trachea central. LUNGS: There is diminished air entry prolonged expiration. There is a few bibasilar rales of CHF. HEART: S1-S2 is heard. There is no S3 gallop. There is no S4 gallop. There is systolic murmur left sternal border and the apex there is no rub. There is murmur of mitral regurgitation and tricuspid regurgitation present. ABDOMEN: Soft. Nontender there is no hepatosplenomegaly bowel sounds are well heard. Bowel sounds well heard. EXTREMITIES: Femorals are well felt. There is no femoral bruits. Leg pulses are well felt. There is no pedal edema. There is no DVT or cellulitis. THERE is no cyanosis or clubbing. There is no calf tenderness. UPPER CASER: The patient is conscious awake alert and pleasantly confused PSYCHIATRIC: Patient does not appear to be agitated or anxious. Her affect seems to be somewhat flat. Labs- All tests 24 hr 01/21/20 01/22/20 01/22/20 23:34 06:39 06:39 WBC 4.8 RBC 3.75 Hgb 11.8 L Hct 34.0 L MCV 91 MCH 31.6 MCHC 34.8 RDW 14.2 H Plt Count 170 Lymph % (Auto) 39.1 Hardin % (Auto) 15.6 H Eos % (Auto) 0.1 Baso % (Auto) 1.3 Absolute Neuts (auto) 2.1 Absolute Lymphs (auto) 1.9 Absolute Monos (auto) 0.7 Absolute Eos (auto) 0.0 Absolute Basos (auto) 0.1 Seg Neutrophils % 43.9 APTT 137.2 H* D 63.2 H Sodium Potassium Chloride Carbon Dioxide Anion Gap BUN Creatinine Est GFR ( Amer) Est GFR (MDRD) Non-Af Glucose Calcium Total Bilirubin Direct Bilirubin Neonat Total Bilirubin Neonat Direct Bilirubin Neonat Indirect Bili AST ALT Alkaline Phosphatase Troponin I Total Protein Albumin 01/22/20 01/22/20 01/22/20 06:39 12:59 16:14 WBC RBC Hgb Hct MCV MCH MCHC RDW Plt Count Lymph % (Auto) Hard[place] % (Auto) Eos % (Auto) Baso % (Auto) Absolute Neuts (auto) Absolute Lymphs (auto) Absolute Monos (auto) Absolute Eos (auto) Absolute Basos (auto) Seg Neutrophils % APTT 54.2 H Sodium 139.9 Potassium 4.6 D Chloride 104 Carbon Dioxide 25 Anion Gap 11 BUN 34 H Creatinine 1.97 H Est GFR ( Amer) 29 L Est GFR (MDRD) Non-Af 24 L Glucose 100 Calcium 9.3 Total Bilirubin 1.1 Direct Bilirubin 0.3 Neonat Total Bilirubin Not Reportable Neonat Direct Bilirubin Not Reportable Neonat Indirect Bili Not Reportable AST 34 ALT 13 Alkaline Phosphatase 63 Troponin I 1.640 Total Protein 7.0 Albumin 3.7 01/22/20 20:35 WBC RBC Hgb Hct MCV MCH MCHC RDW Plt Count Lymph % (Auto) Hard[place] % (Auto) Eos % (Auto) Baso % (Auto) Absolute Neuts (auto) Absolute Lymphs (auto) Absolute Monos (auto) Absolute Eos (auto) Absolute Basos (auto) Seg Neutrophils % APTT 69.2 H Sodium Potassium Chloride Carbon Dioxide Anion Gap BUN Creatinine Est GFR ( Amer) Est GFR (MDRD) Non-Af Glucose Calcium Total Bilirubin Direct Bilirubin Neonat Total Bilirubin Neonat Direct Bilirubin Neonat Indirect Bili AST ALT Alkaline Phosphatase Troponin I Total Protein Albumin Chest X-Ray 01/19/20 00:00 IMPRESSION: NO ACUTE RADIOGRAPHIC FINDING IN THE CHEST. Chest/Abdomen CTA 01/20/20 00:00 IMPRESSION: 1. No pulmonary embolism. No acute pulmonary disease. 2. Enlarged pulmonary arteries, which can be seen with pulmonary arterial hypertension. Clinical correlation and correlation with echocardiogram may provide additional information. 3. Severe cardiomegaly. 4. Ascending thoracic aortic aneurysm measuring maximum 4 cm diameter. 5. Infrarenal abdominal aortic ectasia measuring maximum 3 cm. 6. Colonic diverticulosis without evidence of diverticulitis. IMPRESSION/RECOMMENDATION: 1. Non-ST relation [place]: This cannot be entirely excluded especially with the patient's dementia and not a good historian, and with the EKG changes. Although this could be supply demand mismatch secondary to the patient's acute renal fa ilure and heart failure. In view of this would start the patient on low-dose IV heparin for at least 48 hours later would recommend [place] IV Lexiscan Cardiolite stress test. 2. Most likely acute on chronic systolic heart failure. 3. Hypertension: At present blood pressure seems to be well controlled. 4. Acute renal failure: Avoid nephrotoxic drugs 5. 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 Moderate mitral regurgitation: Recommend afterload reduction 7. Moderate to severe tricuspid regurgitation and moderate to severe pulmonary hypertension 8. Peripheral vascular disease: Patient with thoracic aortic aneurysm and infrarenal abdominal aortic ectasia. 9. Dementia Medications reviewed medical regimen management plan discussed with attending provider on the case medical decision making is of high complexity. 60 minutes spent as patient more than 50% of time spent in direct patient care. Will follow
--- NOTE | 2020-01-22 22:00 | PDOC PROGRESS REPORT ---
Subjective Progress Note for:: 01/22/20 Subjective:: Patient seen at bedside, she continues to be asymptomatic, she was seen by Dr. Nash, cardiology Reason For Visit: ACUTE CHF Physical Exam Vital Signs: Temp Pulse Resp BP Pulse Ox 98.3 F 71 18 123/53 L 100 01/22/20 15:40 01/22/20 15:40 01/22/20 15:40 01/22/20 15:40 01/22/20 15:40 Intake & Output 01/21/20 01/22/20 01/23/20 06:59 06:59 06:59 Intake Total 4747 199 3561 Output Total 250 0 Balance 9172 313 1532 Weight 51.2 kg 50 kg General appearance: PRESENT: no acute distress Eye exam: PRESENT: PERRLA Respiratory exam: PRESENT: clear to auscultation siena Cardiovascular exam: PRESENT: +S1, +S2 GI/Abdominal exam: PRESENT: soft Neurological exam: PRESENT: alert Results Laboratory Results: 01/22/20 06:39 01/22/20 06:39 01/22/20 01/22/20 06:39 06:39 WBC 4.8 RBC 3.75 Hgb 11.8 L Hct 34.0 L MCV 91 MCH 31.6 MCHC 34.8 RDW 14.2 H Plt Count 170 Seg Neutrophils % 43.9 Sodium 139.9 Potassium 4.6 D Chloride 104 Carbon Dioxide 25 Anion Gap 11 BUN 34 H Creatinine 1.97 H Est GFR ( Amer) 29 L Glucose 100 Calcium 9.3 Total Bilirubin 1.1 AST 34 Alkaline Phosphatase 63 Total Protein 7.0 Albumin 3.7 01/19/20 01/19/20 01/19/20 12:30 12:30 12:30 Creatine Kinase 63 CK-MB (CK-2) 1.08 Troponin I 0.069 NT-Pro-B Natriuret Pep 3330 H 01/19/20 01/19/20 01/20/20 20:42 20:42 04:29 Creatine Kinase 64 69 CK-MB (CK-2) 1.19 Troponin I 0.083 NT-Pro-B Natriuret Pep 01/20/20 01/21/20 01/21/20 04:29 01:39 01:39 Creatine Kinase 97 CK-MB (CK-2) 1.32 1.56 Troponin I 0.099 0.114 NT-Pro-B Natriuret Pep 01/21/20 01/21/20 01/21/20 10:10 10:10 10:10 Creatine Kinase Cancelled 145 H CK-MB (CK-2) 6.13 H Troponin I 2.150 NT-Pro-B Natriuret Pep 01/21/20 01/21/20 01/22/20 15:40 15:40 16:14 Creatine Kinase 149 H CK-MB (CK-2) 6.43 H Troponin I 3.700 1.640 NT-Pro-B Natriuret Pep Impressions: Chest X-Ray 01/19/20 00:00 IMPRESSION: NO ACUTE RADIOGRAPHIC FINDING IN THE CHEST. Chest/Abdomen CTA 01/20/20 00:00 IMPRESSION: 1. No pulmonary embolism. No acute pulmonary disease. 2. Enlarged pulmonary arteries, which can be seen with pulmonary arterial hypertension. Clinical correlation and correlation with echocardiogram may pr ovide additional information. 3. Severe cardiomegaly. 4. Ascending thoracic aortic aneurysm measuring maximum 4 cm diameter. 5. Infrarenal abdominal aortic ectasia measuring maximum 3 cm. 6. Colonic diverticulosis without evidence of diverticulitis. Assessment & Plan - Diagnosis (1) Hypertensive emergency Is this a current diagnosis for this admission?: Yes (2) Acute systolic heart failure Is this a current diagnosis for this admission?: Yes (3) Pulmonary hypertension Is this a current diagnosis for this admission?: Yes (4) Ascending aortic aneurysm Is this a current diagnosis for this admission?: Yes (5) Dementia Qualifiers: Dementia type: Alzheimer's disease Alzheimer's disease onset: other onset Dementia behavioral disturbance: without behavioral disturbance Qualified Code(s): G30.8 - Other Alzheimer's disease; F02.80 - Dementia in other diseases classified elsewhere without behavioral disturbance Is this a current diagnosis for this admission?: Yes (6) NSTEMI (non-ST elevated myocardial infarction) Is this a current diagnosis for this admission?: Yes Plan: Patient on anticoagulation with IV heparin (7) Hypotension Qualifiers: Hypotension type: unspecified hypotension type Qualified Code(s): I95.9 - Hypotension, unspecified Is this a current diagnosis for this admission?: Yes Plan: Improved/resolved (8) Acute kidney injury Is this a current diagnosis for this admission?: Yes Plan: She has acute kidney injury From combination of contrast nephropathy, hemodynamic instability, it is nonoliguric no indication for renal repeat therapy at the moment - Time Time Spent with patient: 25-34 minutes Level of Care: IMCU Medications reviewed and adjusted accordingly: Yes Anticipated discharge: Home Anticipated DC Timeframe: within 72 hours
[2020-01-22] MEDS: ZOLPIDEM TARTRATE 5 MG TABLET PO SCH (22:02)
[2020-01-23] MEDS: HYDRALAZINE HCL 50 MG TABLET PO SCH ×3 (06:02→21:20)
[2020-01-23] MEDS: NITROGLYCERIN 2% OINTMENT 1 GM PACKET TP SCH ×2 (06:03→16:34)
[2020-01-23] MEDS: HEPARIN SODIUM,PORCINE/D5W 25,000 UNIT/250 ML RTUINJ IV PRN (06:06)
--- NOTE | 2020-01-23 08:51 | EKG REPORT ---
SEVERITY:- ABNORMAL ECG - SINUS RHYTHM FIRST DEGREE AV BLOCK LEFT AXIS DEVIATION LVH WITH SECONDARY REPOLARIZATION ABNORMALITY : Confirmed by: Thang Joyce MD 23-Jan-2020 08:50:43
[2020-01-23] MEDS: SACUBITRIL/VALSARTAN 49 MG/51 MG TABLET PO SCH ×2 (09:04→21:16)
[2020-01-23] MEDS: DONEPEZIL HCL 5 MG TABLET PO SCH (09:04)
[2020-01-23] MEDS: ASPIRIN 81 MG TABLET, ENT COATED PO SCH (09:04)
[2020-01-23] MEDS: METOPROLOL SUCCINATE 50 MG TAB.SR.24H PO SCH (09:05)
[2020-01-23] MEDS: MEMANTINE HCL 10 MG TABLET PO SCH ×2 (09:05→18:08)
[2020-01-23] MEDS: POTASSIUM CHLORIDE 10 MEQ TABLET.ER PO SCH (09:05)
[2020-01-23 12:59] LABS: ABSOLUTE LYMPHOCYTES (AUTO) 1.9 10^3/uL (0.5-4.7); ABSOLUTE MONOCYTES (AUTO) 0.8 10^3/uL (0.1-1.4); ABSOLUTE NEUT (AUTO) 1.4 10^3/uL (1.7-8.2); EOSINOPHILS % (AUTO) 0.8 % (0-6); HEMATOCRIT 33.7 % (36.0-47.0); HEMOGLOBIN 11.5 g/dL (12.0-15.5); LYMPHOCYTES % (AUTO) 45.1 % (13-45); MEAN CORPUSCULAR HEMOGLOBIN 31.4 pg (27.0-33.4); MEAN CORPUSCULAR HGB CONC 34.1 g/dL (32.0-36.0); MEAN CORPUSCULAR VOLUME 92 fl (80-97); MONOCYTES % (AUTO) 18.4 % (3-13); PLATELET COUNT 175 10^3/uL (150-450); RED BLOOD COUNT 3.65 10^6/uL (3.72-5.28); RED CELL DISTRIBUTION WIDTH 14.6 % (11.5-14.0); SEGMENTED NEUTROPHILS % (AUTO) 34.7 % (42-78); TOTAL CELLS COUNTED % (AUTO) 100 %; WHITE BLOOD COUNT 4.1 10^3/uL (4.0-10.5)
[2020-01-23 13:14] LABS: ALBUMIN 3.5 g/dL (3.5-5.0); ALKALINE PHOSPHATASE 58 U/L (38-126); ANION GAP 10 (5-19); ASPARTATE AMINO TRANSFERASE 27 U/L (14-36); BILIRUBIN,DIRECT 0.3 mg/dL (0.0-0.4); BILIRUBIN,TOTAL 0.9 mg/dL (0.2-1.3); BLOOD UREA NITROGEN 32 mg/dL (7-20); CALCIUM 9.4 mg/dL (8.4-10.2); CARBON DIOXIDE 23 mmol/L (22-30); CHLORIDE 107 mmol/L (98-107); GLUCOSE 99 mg/dL (75-110); POTASSIUM 4.6 mmol/L (3.6-5.0); TOTAL PROTEIN 6.8 g/dL (6.3-8.2)
--- NOTE | 2020-01-23 15:42 | Progress Note ---
Provider Note Provider Note: CARDIOLOGY PROGRESS NOTE by Dr. Kym Levi on 01/23/2020. SUBJECTIVE: The patient remains asymptomatic. She denies chest pain or discomfort. There is no shortness of breath. There is no PND orthopnea. There is no arrhythmias seen on the monitor. The patient is renal function slightly improved. She is nonoliguric and producing a fair amount of urine. PHYSICAL EXAMINATION: The patient is a frail build. In no acute distress. Selected Entries 01/23/20 15:43 Temperature 98.5 F Temperature Oral Source Pulse Rate 69 Respiratory 18 Rate Blood Pressure 134/69 H Blood Pressure 90 Mean BP Location Left Arm BP Position Supine O2 Sat by Pulse 97 Oximetry Oxygen Delivery Room Air Method HEAD: Is atraumatic normocephalic. EYES: Pupils are equal round regular reactive light accommodation. Extraocular movements are normal. There is no conjunctival pallor. There is no scleral icterus. EARS: Tympanic membranes are intact. External auditory canals are clear. NOSE: There is no deviated nasal septum. There is no inflammation nasal mucous membrane. MOUTH: Mucous membranes of mouth are moist. Tongue is moist. There is no ulcers. There is no bleeding from the gums. THROAT: There is no redness of the oropharynx. There is no exudates. SKIN: There is no skin rashes. There is no petechia or ecchymosis. There is no skin lesions. NECK: Is supple. There i is mild JVD. Carotids are equal there is no bruit. There is no lymphadenopathy. There is no goiter. There is no accessory muscle respiration use. Trachea central. LUNGS: There is diminished air entry prolonged expiration. There is a few bibasilar rales of CHF. HEART: S1-S2 is heard. There is no S3 gallop. There is no S4 gallop. There is systolic murmur left sternal border and the apex there is no rub. There is murmur of mitral regurgitation and tricuspid regurgitation present. ABDOMEN: Soft. Nontender there is no hepatosplenomegaly bowel sounds are well heard. Bowel sounds well heard. EXTREMITIES: Femorals are well felt. There is no femoral bruits. Leg pulses are well felt. There is no pedal edema. There is no DVT or cellulitis. THERE is no cyanosis or clubbing. There is no calf tenderness. BALLOON ARTIST: The patient is conscious awake alert and pleasantly confused PSYCHIATRIC: Patient does not appear to be agitated or anxious. Her affect seems to be somewhat flat. Labs- All tests 24 hr 01/22/20 01/23/20 01/23/20 20:35 05:54 05:54 WBC RBC Hgb Hct MCV MCH MCHC RDW Plt Count Lymph % (Auto) Parker % (Auto) Eos % (Auto) Baso % (Auto) Absolute Neuts (auto) Absolute Lymphs (auto) Absolute Monos (auto) Absolute Eos (auto) Absolute Basos (auto) Seg Neutrophils % APTT 69.2 H Sodium 139.6 Potassium 4.6 Chloride 107 Carbon Dioxide 23 Anion Gap 10 BUN 32 H Creatinine 1.67 H Est GFR ( Amer) 35 L Est GFR (MDRD) Non-Af 29 L Glucose 99 Calcium 9.4 Total Bilirubin 0.9 Direct Bilirubin 0.3 Neonat Total Bilirubin Not Reportable Neonat Direct Bilirubin Not Reportable Neonat Indirect Bili Not Reportable AST 27 ALT 10 Alkaline Phosphatase 58 Troponin I 1.270 Total Protein 6.8 Albumin 3.5 01/23/20 01/23/20 06:56 06:56 WBC 4.1 RBC 3.65 L Hgb 11.5 L Hct 33.7 L MCV 92 MCH 31.4 MCHC 34.1 RDW 14.6 H Plt Count 175 Lymph % (Auto) 45.1 H Parker % (Auto) 18.4 H Eos % (Auto) 0.8 Baso % (Auto) 1.0 Absolute Neuts (auto) 1.4 L Absolute Lymphs (auto) 1.9 Absolute Monos (auto) 0.8 Absolute Eos (auto) 0.0 Absolute Basos (auto) 0.0 Seg Neutrophils % 34.7 L APTT 62.3 H Sodium Potassium Chloride Carbon Dioxide Anion Gap BUN Creatinine Est GFR ( Amer) Est GFR (MDRD) Non-Af Glucose Calcium Total Bilirubin Direct Bilirubin Neonat Total Bilirubin Neonat Direct Bilirubin Neonat Indirect Bili AST ALT Alkaline Phosphatase Troponin I Total Protein Albumin Chest X-Ray 01/19/20 00:00 IMPRESSION: NO ACUTE RADIOGRAPHIC FINDING IN THE CHEST. Chest/Abdomen CTA 01/20/20 00:00 IMPRESSION: 1. No pulmonary embolism. No acute pulmonary disease. 2. Enlarged pulmonary arteries, which can be seen with pulmonary arterial hypertension. Clinical correlation and correlation with echocardiogram may provide additional information. 3. Severe cardiomegaly. 4. Ascending thoracic aortic aneurysm measuring maximum 4 cm diameter. 5. Infrarenal abdominal aortic ectasia measuring maximum 3 cm. 6. Colonic diverticulosis without evidence of diverticulitis. IMPRESSION/RECOMMENDATION: 1. Non-ST Elevation [place]: This cannot be entirely excluded especially with the patient's dementia and not a good historian, and with the EKG changes. Although this could be supply demand mismatch secondary to the patient's acute renal failure and heart failure. In view of this would start the patient on low-dose IV heparin for at least 48 hours later would recommend [place] IV Lexiscan Cardi olite stress test. Probably can stop the heparin tomorrow. Would discontinue the patient Nitropaste and add Transderm Nitropatch to chest wall daily. 2. Most likely acute on chronic systolic heart failure. 3. Hypertension: At present blood pressure seems to be well controlled. 4. Acute renal failure: Avoid nephrotoxic drugs 5. 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 Continue hydralazine and small dose of Entresto. 6. Moderate mitral regurgitation: Recommend afterload reduction 7. Moderate to severe tricuspid regurgitation and moderate to severe pulmonary hypertension 8. Peripheral vascular disease: Patient with thoracic aortic aneurysm and infrarenal abdominal aortic ectasia. 9. Dementia Medications reviewed. Medications adjusted. Medical regimen management plan discussed with attending provider on the case medical decision making is of high complexity. 60 minutes spent as patient more than 50% of time spent in direct patient care. Will follow
--- NOTE | 2020-01-23 21:11 | PDOC PROGRESS REPORT ---
Subjective Progress Note for:: 01/23/20 Subjective:: Patient seen at bedside, she continues to be asymptomatic, she was seen by Dr. Nash, cardiology,she will hopefully discharge tomorrow Reason For Visit: ACUTE CHF Physical Exam Vital Signs: Temp Pulse Resp BP Pulse Ox 98.1 F 68 20 125/60 98 01/23/20 21:06 01/23/20 21:06 01/23/20 21:06 01/23/20 21:06 01/23/20 21:06 Intake & Output 01/22/20 01/23/20 01/24/20 06:59 06:59 06:59 Intake Total 589 1187 740 Output Total 0 Balance 589 1187 740 Weight 50 kg 49.8 kg General appearance: PRESENT: no acute distress Eye exam: PRESENT: PERRLA Respiratory exam: PRESENT: clear to auscultation siena Cardiovascular exam: PRESENT: +S1, +S2 GI/Abdominal exam: PRESENT: soft Neurological exam: PRESENT: alert, CN II-XII grossly intact Results Laboratory Results: 01/23/20 06:56 01/23/20 05:54 01/23/20 01/23/20 05:54 06:56 WBC 4.1 RBC 3.65 L Hgb 11.5 L Hct 33.7 L MCV 92 MCH 31.4 MCHC 34.1 RDW 14.6 H Plt Count 175 Seg Neutrophils % 34.7 L Sodium 139.6 Potassium 4.6 Chloride 107 Carbon Dioxide 23 Anion Gap 10 BUN 32 H Creatinine 1.67 H Est GFR ( Amer) 35 L Glucose 99 Calcium 9.4 Total Bilirubin 0.9 AST 27 Alkaline Phosphatase 58 Total Protein 6.8 Albumin 3.5 01/19/20 01/19/20 01/19/20 12:30 12:30 12:30 Creatine Kinase 63 CK-MB (CK-2) 1.08 Troponin I 0.069 NT-Pro-B Natriuret Pep 3330 H 01/19/20 01/19/20 01/20/20 20:42 20:42 04:29 Creatine Kinase 64 69 CK-MB (CK-2) 1.19 Troponin I 0.083 NT-Pro-B Natriuret Pep 01/20/20 01/21/20 01/21/20 04:29 01:39 01:39 Creatine Kinase 97 CK-MB (CK-2) 1.32 1.56 Troponin I 0.099 0.114 NT-Pro-B Natriuret Pep 01/21/20 01/21/20 01/21/20 10:10 10:10 10:10 Creatine Kinase Cancelled 145 H CK-MB (CK-2) 6.13 H Troponin I 2.150 NT-Pro-B Natriuret Pep 01/21/20 01/21/20 01/22/20 15:40 15:40 16:14 Creatine Kinase 149 H CK-MB (CK-2) 6.43 H Troponin I 3.700 1.640 NT-Pro-B Natriuret Pep 01/23/20 05:54 Creatine Kinase CK-MB (CK-2) Troponin I 1.270 NT-Pro-B Natriuret Pep Impressions: Chest X-Ray 01/19/20 00:00 IMPRESSION: NO ACUTE RADIOGRAPHIC FINDING IN THE CHEST. Chest/Abdomen CTA 01/20/20 00:00 IMPRESSION: 1. No pulmonary embolism. No acute pulmonary disease. 2. Enlarged pulmonary arteries, which can be seen with pulmonary arterial hypertension. Clinical correlation and correlation with echocardiogram may provide additional information. 3. Severe cardiomegaly. 4. Ascending thoracic aortic aneurysm measuring maximum 4 cm diameter. 5. Infrarenal abdominal aortic ectasia measuring maximum 3 cm. 6. Colonic diverticulosis without evidence of diverticulitis. Assessment & Plan - Diagnosis (1) Hypertensive emergency Is this a current diagnosis for this admission?: Yes (2) Acute systolic heart failure Is this a current diagnosis for this admission?: Yes (3) Pulmonary hypertension Is this a current diagnosis for this admission?: Yes (4) Ascending aortic aneurysm Is this a current diagnosis for this admission?: Yes (5) Dementia Qualifiers: Dementia type: Alzheimer's disease Alzheimer's disease onset: other onset Dementia behavioral disturbance: without behavioral disturbance Qualified Code(s): G30.8 - Other Alzheimer's disease; F02.80 - Dementia in other diseases classified elsewhere without behavioral disturbance Is this a current diagnosis for this admission?: Yes (6) NSTEMI (non-ST elevated myocardial infarction) Is this a current diagnosis for this admission?: Yes (7) Hypotension Qualifiers: Hypotension type: unspecified hypotension type Qualified Code(s): I95.9 - Hypotension, unspecified Is this a current diagnosis for this admission?: Yes (8) Acute kidney injury Is this a current diagnosis for this admission?: Yes - Time Time Spent with patient: 35 or more minutes Level of Care: IMCU Medications reviewed and adjusted accordingly: Yes Anticipated discharge: Home Anticipated DC Timeframe: within 24 hours
[2020-01-23] MEDS: ZOLPIDEM TARTRATE 5 MG TABLET PO SCH (21:16)
[2020-01-24] MEDS: HYDRALAZINE HCL 50 MG TABLET PO SCH (05:41)
[2020-01-24] MEDS: HEPARIN SODIUM,PORCINE/D5W 25,000 UNIT/250 ML RTUINJ IV PRN (06:55)
[2020-01-24] MEDS: POTASSIUM CHLORIDE 10 MEQ TABLET.ER PO SCH (09:23)
[2020-01-24] MEDS: ASPIRIN 81 MG TABLET, ENT COATED PO SCH (09:23)
[2020-01-24] MEDS: METOPROLOL SUCCINATE 50 MG TAB.SR.24H PO SCH (09:23)
[2020-01-24] MEDS: DONEPEZIL HCL 5 MG TABLET PO SCH (09:23)
[2020-01-24] MEDS: MEMANTINE HCL 10 MG TABLET PO SCH (09:23)
[2020-01-24] MEDS: SACUBITRIL/VALSARTAN 49 MG/51 MG TABLET PO SCH (09:26)
[2020-01-24] MEDS ORDERED: NITROGLYCERIN 5 MG (0.2 MG/HR) PATCH.TD24 TD SCH (10:00)
[2020-01-24] MEDS ORDERED: FUROSEMIDE INJ/PF 20 MG/2 ML SDV IV ONE (11:48)
--- NOTE | 2020-01-24 13:52 | PDOC DISCHARGE SUMMARY ---
Impression - Admit/DC Date/PCP Admission Date/Primary Care Provider: 01/19/20 11:40 MICHAELA HUFF MD Discharge Date: 01/24/20 - Discharge Diagnosis (1) Hypertensive emergency Is this a current diagnosis for this admission?: Yes (2) Acute systolic heart failure Is this a current diagnosis for this admission?: Yes (3) Pulmonary hypertension Is this a current diagnosis for this admission?: Yes (4) Ascending aortic aneurysm Is this a current diagnosis for this admission?: Yes (5) Dementia Is this a current diagnosis for this admission?: Yes (6) NSTEMI (non-ST elevated myocardial infarction) Is this a current diagnosis for this admission?: Yes (7) Hypotension Is this a current diagnosis for this admission?: Yes (8) Acute kidney injury Is this a current diagnosis for this admission?: Yes - Additional Information Discharge Diet: Cardiac Discharge Activity: Activity As Tolerated, Balance Activity w/Rest, Weigh Daily Referrals: MICHAELA HUFF MD [Primary Care Provider] - 01/27/20 9:45 am Prescriptions: Atorvastatin Calcium [Lipitor 40 mg Tablet] 40 mg PO QHS #90 tablet Hydralazine HCl [Apresoline 50 mg Tablet] 50 mg PO Q8 #90 tablet Sacubitril/Valsartan [Entresto 49 mg/51 mg Tablet] 1 tab PO Q12 #60 tablet Home Medications: Aspirin [Ecotrin 81 mg EC Tablet] 81 mg PO DAILY 01/19/20 Donepezil HCl [Aricept 5 mg Tablet] 5 mg PO DAILY 01/19/20 Eszopiclone 3 mg PO QHS 01/19/20 Furosemide [Lasix 40 mg Tablet] 40 mg PO QAM 01/19/20 Memantine HCl 10 mg PO BID 01/19/20 Metoprolol Succinate [Toprol Xl] 100 mg PO DAILY 01/19/20 Potassium Chloride [Klor-Con M20] 20 meq PO DAILY 01/19/20 Atorvastatin Calcium [Lipitor 40 mg Tablet] 40 mg PO QHS #90 tablet 01/24/20 Hydralazine HCl [Apresoline 50 mg Tablet] 50 mg PO Q8 #90 tablet 01/24/20 Sacubitril/Valsartan [Entresto 49 mg/51 mg Tablet] 1 tab PO Q12 #60 tablet 01/24/20 History of Present Illiness History of Present Illness: EVIN ALEXIS is a 84 year old female She came to the office today for follow-up evaluation, I saw her in the office last week when she came for the evaluation of bilateral leg swelling, a stat venous Doppler was done, it was negative for deep vein thrombosis, the blood work that was done outpatient demonstrated elevated B type natruretic peptide that suggest CHF. The kidney function was normal ,liver function was normal, patient denied any shortness of breath, PND, orthopnea, she was admitted directly from the office to the hospital. She also was found to have severely elevated blood pressure in the emergency hypertensive range. The transthoracic echocardiogram that was done demonstrated Normal size left ventricle, the estimated ejection fraction of left ventricle is 50%. The Doppler measurements suggest impaired left ventricular relaxation which is associated with grade 1 diastolic dysfunction. There is mild global hypokinesis of the left ventricle there is no thrombus the right ventricle is mildly dila ovi, the systolic function of] is normal the right atrium is borderline dilated, there is moderate to severe pulmonary pretension by echocardiogram. CT angiogram of the chest was done demonstrated aneurysmal dilation of the ascending thoracic aorta measuring 4 x 3.8 cm.There is no pulmonary emboli. The pulmonary arteries are enlarged Hospital Course Hospital Course: Patient was admitted for the management of bilateral lower extremity edema, systolic heart failure was suspected, she also had hypertensive emergency with systolic blood pressure over 200. A transthoracic echocardiogram was ordered, normal-sized left ventricle, the ejection fraction of 11 to was 50% there was associated grade 1 diastolic dysfunction of left ventricle with mild global hypokinesis left ventricle. The right ventricle was dilated mildly, the right ventricle systolic function was normal the right atrium was dilated mildly the left atrium was mildly dilated, there was evidence of mitral valve prolapse there was no evidence of vegetation on mitral valve there is no mitral valve stenosis that was moderate mitral valve regurgitation. There was no aortic valve stenosis there was mild aortic valve regurgitation there was moderate to severe hypertension by echo. She was initially treated with intravenous nitroglycerin for the hypertension and acute systolic. Heart failure CT angiogram of the chest was obtained because of the severe pulmonary hypertension, it demonstrated aneurysmal dilatation of the ascending thoracic aorta it measures 4 x 3.8 cm there was no pulmonary emboli visualized. Hospital course was complicated with non-STEMI, she had episode of T wave changes on EKG the lateral leads with concomitant increase in troponin but patient denies any chest pain or shortness of breath, consultation was requested from Dr. Burr, cardiology,he ordered .intravenous anticoagulation and heparin she also had hypotension with acute kidney injury, the acute kidney injury etiology is multifactorial including contrast hemodynamic instability. Dr. Levi recommended medical management for the non-STEMI because she has underlining dementia and advanced age. She be treated with medium to high intensity statin, atorvastatin, she is already on beta-elisabeth metoprolol, she is started on Entresto because of the acute systolic heart failure albeit mild Physical Exam Vital Signs: Temp Pulse Resp BP Pulse Ox 97.3 F 74 16 135/70 H 100 01/24/20 11:29 01/24/20 11:29 01/24/20 11:29 01/24/20 11:29 01/24/20 11:29 Intake & Output 01/23/20 01/24/20 01/25/20 06:59 06:59 05:59 Intake Total 1187 880 Output Total 300 Balance 1187 580 Weight 49.8 kg 50 kg General appearance: PRESENT: no acute distress Eye exam: PRESENT: PERRLA Respiratory exam: PRESENT: clear to auscultation siena Cardiovascular exam: PRESENT: +S1, +S2 GI/Abdominal exam: PRESENT: soft Neurological exam: PRESENT: alert Results Laboratory Results: WBC 4.1 10^3/uL (4.0-10.5) 01/23/20 06:56 RBC 3.65 10^6/uL (3.72-5.28) L 01/23/20 06:56 Hgb 11.5 g/dL (12.0-15.5) L 01/23/20 06:56 Hct 33.7 % (36.0-47.0) L 01/23/20 06:56 MCV 92 fl (80-97) 01/23/20 06:56 MCH 31.4 pg (27.0-33.4) 01/23/20 06:56 MCHC 34.1 g/dL (32.0-36.0) 01/23/20 06:56 RDW 14.6 % (11.5-14.0) H 01/23/20 06:56 Plt Count 175 10^3/uL (150-450) 01/23/20 06:56 Lymph % (Auto) 45.1 % (13-45) H 01/23/20 06:56 [place] % (Auto) 18.4 % (3-13) H 01/23/20 06:56 Eos % (Auto) 0.8 % (0-6) 01/23/20 06:56 Baso % (Auto) 1.0 % (0-2) 01/23/20 06:56 Absolute Neuts (auto) 1.4 10^3/uL (1.7-8.2) L 01/23/20 06:56 Absolute Lymphs (auto) 1.9 10^3/uL (0.5-4.7) 01/23/20 06:56 Absolute Monos (auto) 0.8 10^3/uL (0.1-1.4) 01/23/20 06:56 Absolute Eos (auto) 0.0 10^3/uL (0.0-0.6) 01/23/20 06:56 Absolute Basos (auto) 0.0 10^3/uL (0.0-0.2) 01/23/20 06:56 Seg Neutrophils % 34.7 % (42-78) L 01/23/20 06:56 PT 14.9 SEC (11.4-15.4) 01/21/20 16:53 INR 1.15 01/21/20 16:53 APTT 84.7 SEC (23.5-35.8) H 01/24/20 05:32 D-Dimer 2.72 ug/mL (0.00-0.50) H 01/20/20 08:28 Carbonic Acid 1.09 mmol/L (1.05-1.35) 01/20/20 20:48 HCO3/H2CO3 Ratio 26:1 01/20/20 20:48 ABG pH 7.52 (7.35-7.45) H 01/20/20 20:48 ABG pCO2 36.1 mmHg (35-45) 01/20/20 20:48 ABG pO2 94.1 mmHg (80-100) 01/20/20 20:48 ABG HCO3 28.5 mmol/L (20-24) H 01/20/20 20:48 ABG Total CO2 29.6 mmol/L (21-25) H 01/20/20 20:48 ABG O2 Saturation 97.8 % (94-98) 01/20/20 20:48 ABG Base Excess 5.4 mmol/L 01/20/20 20:48 FiO2 ROOM AIR 01/20/20 20:48 Sodium 139.6 mmol/L (137-145) 01/23/20 05:54 Potassium 4.6 mmol/L (3.6-5.0) 01/23/20 05:54 Chloride 107 mmol/L (98-107) 01/23/20 05:54 Carbon Dioxide 23 mmol/L (22-30) 01/23/20 05:54 Anion Gap 10 (5-19) 01/23/20 05:54 BUN 32 mg/dL (7-20) H 01/23/20 05:54 Creatinine 1.67 mg/dL (0.52-1.25) H 01/23/20 05:54 Est GFR ( Amer) 35 (>60) L 01/23/20 05:54 Est GFR (MDRD) Non-Af 29 (>60) L 01/23/20 05:54 Glucose 99 mg/dL (75-110) 01/23/20 05:54 Calcium 9.4 mg/dL (8.4-10.2) 01/23/20 05:54 Total Bilirubin 0.9 mg/dL (0.2-1.3) 01/23/20 05:54 Direct Bilirubin 0.3 mg/dL (0.0-0.4) 01/23/20 05:54 Neonat Total Bilirubin Not Reportable 01/23/20 05:54 Neonat Direct Bilirubin Not Reportable 01/23/20 05:54 Neonat Indirect Bili Not Reportable 01/23/20 05:54 AST 27 U/L (14-36) 01/23/20 05:54 ALT 10 U/L (<35) 01/23/20 05:54 Alkaline Phosphatase 58 U/L (38-126) 01/23/20 05:54 Creatine Kinase 149 U/L (30-135) H 01/21/20 15:40 CK-MB (CK-2) 6.43 ng/mL (<4.55) H 01/21/20 15:40 Troponin I 1.270 ng/mL 01/23/20 05:54 B-Natriuretic Peptide 418.5 pg/mL (0.0-100.0) H 01/19/20 12:30 NT-Pro-B Natriuret Pep 3330 pg/mL (<450) H 01/19/20 12:30 Total Protein 6.8 g/dL (6.3-8.2) 01/23/20 05:54 Albumin 3.5 g/dL (3.5-5.0) 01/23/20 05:54 TSH 1.03 uIU/mL (0.47-4.68) 01/19/20 12:30 01/19/20 01/19/20 01/19/20 12:30 12:30 20:42 CK-MB (CK-2) 1.08 1.19 Troponin I 0.069 0.083 NT-Pro-B Natriuret Pep 3330 H 01/20/20 01/21/20 01/21/20 04:29 01:39 10:10 CK-MB (CK-2) 1.32 1.56 6.13 H Troponin I 0.099 0.114 2.150 NT-Pro-B Natriuret Pep 01/21/20 01/22/20 01/23/20 15:40 16:14 05:54 CK-MB (CK-2) 6.43 H Troponin I 3.700 1.640 1.270 NT-Pro-B Natriuret Pep Impressions: Chest X-Ray 01/19/20 00:00 IMPRESSION: NO ACUTE RADIOGRAPHIC FINDING IN THE CHEST. Chest/Abdomen CTA 01/20/20 00:00 IMPRESSION: 1. No pulmonary embolism. No acute pulmonary disease. 2. Enlarged pulmonary arteries, which can be seen with pulmonary arterial hypertension. Clinical correlation and correlation with echocardiogram may provide additional information. 3. Severe cardiomegaly. 4. Ascending thoracic aortic aneurysm measuring maximum 4 cm diameter. 5. Infrarenal abdominal aortic ectasia measuring maximum 3 cm. 6. Colonic diverticulosis without evidence of diverticulitis. Stroke Is this a Stroke Patient?: No Acute Heart Failure Is this a Heart Failure Patient?: Yes Documentation of LVEF assessment?: Yes LVEF: LVEF Greater Than 40% Anticoagulant Therapy: N/A Discharged on Evidence-Based Beta Blockers: Yes Discharged on ARNI?: Yes Discharged on ARB?: N/A-Discharged on ARNI Discharged on ACEI?: N/A Discharged on ARNI For LVEF <35%, discharged on Aldosterone Antagonist?: N/A (LVEF > or = 35%) Follow-up Appointment scheduled within 7 days?: Yes
[2020-01-24 14:03] VITALS: BP 94/40
--- NOTE | 2020-01-24 17:24 | Progress Note ---
Provider Note Provider Note: CARDIOLOGY PROGRESS NOTE by Dr. Kym Levi on 01/24/2020. Subjective: The Patient Denies Any Chest Pain or Discomfort. She Denies Any Shortness of Breath but Appears to Be Slightly Short of Breath. We Will Give Her a Small Dose of Lasix. There Is No Arrhythmias Seen on the Monitor. The Patient Denies Any PND or Orthopnea and Leg Edema Is Resolved. She Does Not Want Any Aggressive Diagnostic Testing or Aggressive Treatment Options. PHYSICAL EXAMINATION: The patient appears to be a frail build but in no acute distress. Selected Entries 01/24/20 11:29 Temperature 97.3 F Temperature Oral Source Pulse Rate 74 Respiratory 16 Rate Blood Pressure 135/70 H Blood Pressure 91 Mean BP Location Left Arm BP Position Supine O2 Sat by Pulse 100 Oximetry Oxygen Delivery Room Air Method IMPRESSION/RECOMMENDATION: HEAD: Is atraumatic normocephalic. EYES: Pupils are equal round regular reactive light accommodation. Extraocular movements are normal. There is no conjunctival pallor. There is no scleral icterus. EARS: Tympanic membranes are intact. External auditory canals are clear. NOSE: There is no deviated nasal septum. There is no inflammation nasal mucous membrane. MOUTH: Mucous membranes of mouth are moist. Tongue is moist. There is no ulcers. There is no bleeding from the gums. THROAT: There is no redness of the oropharynx. There is no exudates. SKIN: There is no skin rashes. There is no petechia or ecchymosis. There is no skin lesions. NECK: Is supple. There i is mild JVD. Carotids are equal there is no bruit. There is no lymphadenopathy. There is no goiter. There is no accessory muscle respiration use. Trachea central. LUNGS: There is diminished air entry prolonged expiration. There is a few bibasilar rales of CHF. HEART: S1-S2 is heard. There is no S3 gallop. There is no S4 gallop. There is systolic murmur left sternal border and the apex there is no rub. There is murmur of mitral regurgitation and tricuspid regurgitation present. ABDOMEN: Soft. Nontender there is no hepatosplenomegaly bowel sounds are well heard. Bowel sounds well heard. EXTREMITIES: Femorals are well felt. There is no femoral bruits. Leg pulses are well felt. There is no pedal edema. There is no DVT or cellulitis. THERE is no cyanosis or clubbing. There is no calf tenderness. 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 Her affect seems to be somewhat flat. Labs- All tests 24 hr 01/24/20 05:32 APTT 84.7 H Chest X-Ray 01/19/20 00:00 IMPRESSION: NO ACUTE RADIOGRAPHIC FINDING IN THE CHEST. Chest/Abdomen CTA 01/20/20 00:00 IMPRESSION: 1. No pulmonary embolism. No acute pulmonary disease. 2. Enlarged pulmonary arteries, which can be seen with pulmonary arterial hypertension. Clinical correlation and correlation with echocardiogram may provide additional information. 3. Severe cardiomegaly. 4. Ascending thoracic aortic aneurysm measuring maximum 4 cm diameter. 5. Infrarenal abdominal aortic ectasia measuring maximum 3 cm. 6. Colonic diverticulosis without evidence of diverticulitis. IMPRESSION/RECOMMENDATION: 1. Non-ST Elevation PR: This cannot be entirely excluded especially with the patient's dementia and not a good historian, and with the EKG changes. Although this could be supply demand mismatch secondary to the patient's acute renal failure and heart failure. Would recommend stopping the patient's IV heparin infusion. Continue nitrates. The patient does not want any aggressive treatment options or stress testing or cardiac catheterization. 2. Most likely acute on chronic systolic heart failure.. Will give a small dose of IV Lasix 3. Hypertension: At present blood pressure seems to be well controlled. 4. Acute renal failure: Avoid nephrotoxic drugs 5. 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 Continue hydralazine and small dose of Entresto. 6. Moderate mitral regurgitation: Recommend afterload reduction 7. Moderate to severe tricuspid regurgitation and moderate to severe pulmonary hypertension 8. Peripheral vascular disease: Patient with thoracic aortic aneurysm and infrarenal abdominal aortic ectasia. 9. Dementia Medications reviewed. Medications adjusted. Medical regimen management plan discussed with attending provider on the case medical decision making is of moderate complexity. 60 minutes spent as patient more than 50% of time spent in direct patient care. Will follow
== END 2020-01-24 15:07 | disposition home or self-care (01) | DRG 280 ==
LOC: 3W 11:40
PROVIDERS: ADMIT Internal Medicine; ATTEND Internal Medicine
DX: I16.0 Hypertensive urgency (principal); I50.23 Acute on chronic systolic (congestive) heart failure; I21.4 Non-ST elevation (NSTEMI) myocardial infarction; N17.9 Acute kidney failure, unspecified; I42.9 Cardiomyopathy, unspecified; I11.0 Hypertensive heart disease with heart failure; I27.20 Pulmonary hypertension, unspecified; I71.4 Abdominal aortic aneurysm, without rupture; I95.9 Hypotension, unspecified; I08.1 Rheumatic disorders of both mitral and tricuspid valves; I73.9 Peripheral vascular disease, unspecified; G30.9 Alzheimer's disease, unspecified; F02.80 Dementia in other diseases classified elsewhere, unspecified severity, without behavioral disturbance, psychotic disturbance, mood disturbance, and anxiety; Z79.82 Long term (current) use of aspirin; Z79.899 Other long term (current) drug therapy; Z87.891 Personal history of nicotine dependence
CPT/HCPCS: 36415; 36600; 71046; 71275; 80053; 82550; 82553; 82803; 83880; 84443; 84484; 85025; 85379; 85610; 85730; 87070; 93005; 93010; 93306; J1644; J1650; J1940; J3490; J7040